=== PATIENT | male | born 1950 | race Hispanic/Latino ===

== ENCOUNTER 2017-06-23 18:56 | Emergency (ER) | payer MEDICARE ==
[2017-06-23 19:45] LABS: Eosinophils % (Auto) 4.5 % (0.0-4.3); Hematocrit 26.7 % (35.5-45.6); Hemoglobin 8.7 gm/dl (11.8-15.2); Mean Corpuscular HGB Conc 33 % (32-34); Mean Corpuscular Hemoglobin 29 pg (28-32); Mean Corpuscular Volume 88 fl (84-94); Platelet Count 400 K/mm3 (140-440); Red Blood Count 3.02 M/mm3 (3.65-5.03); Red Cell Distribution Width 17.5 % (13.2-15.2); White Blood Count 6.3 K/mm3 (4.5-11.0)
[2017-06-23 20:08] LABS: Alanine Aminotransferase 49 units/L (7-56); Albumin 3.5 g/dL (3.9-5); Albumin/Globulin Ratio 0.9 %; Alkaline Phosphatase 104 units/L (35-129); Anion Gap 17 mmol/L; BUN/Creatinine Ratio 11.42; Blood Urea Nitrogen 8 mg/dL (9-20); Calcium 8.8 mg/dL (8.4-10.2); Carbon Dioxide 25 mmol/L (22-30); Chloride 96.7 mmol/L (98-107); Glucose 117 mg/dL (75-100); Potassium 4.4 mmol/L (3.6-5.0); Sodium 134 mmol/L (137-145); Total Protein 7.2 g/dL (6.3-8.2)
[2017-06-23 20:19] LABS: Urine Drugs of Abuse Note Disclamer
[2017-06-23 20:36] LABS: Bilirubin,Urine NEG (Negative); Blood,Urine NEG (Negative); Ketones,Urine NEG (Negative); Leukocyte Esterase,Urine NEG (Negative); Mucus,Urine FEW /HPF; Nitrite,Urine NEG (Negative); Protein,Urine <15 mg/dL mg/dL (Negative); Urobilinogen,Urine < 2.0 mg/dL (<2.0)
--- NOTE | 2017-06-24 02:30 | Emergency Department Report ---
ED General Adult HPI - General Chief complaint: Medical Clearance Stated complaint: ANEMIA Time Seen by Provider: 06/24/17 01:46 Source: patient Mode of arrival: Wheelchair Limitations: No Limitations - History of Present Illness Initial comments: 67-year-old male with past medical history alcohol abuse presents to the hospital from [place] with anemia. Patient is asymptomatic. He denies headache , shortness of breath, dizziness, syncope or near-syncope, melena, hematochezia , or hematemesis. Per patient has been at [place] for about one week. No pain reported. Most recent labs not provided by [place] - Related Data Previous Rx's Medication Instructions Recorded Last Taken Type Docusate Sodium [Colace] 100 mg PO BID PRN #30 capsule 06/24/17 Unknown Rx Ferrous Sulfate [Feosol 325 MG tab] 325 mg PO BID #60 tablet 06/24/17 Unknown Rx Allergies Allergy/AdvReac Type Severity Reaction Status Date / Time No Known Allergies Allergy Verified 06/23/17 19:12 ED Review of Systems ROS: Stated complaint: ANEMIA Other details as noted in HPI Comment: All other systems reviewed and negative Other: Constitutional: No fevers chills Eyes: No eye pain visual changes ENT: No ear pain or throat pain Neck: Denies pain Respiratory: Denies cough wheezing shortness of breath Cardiovascular: Denies chest pain, palpitations, syncope GI: Denies abdominal pain, nausea, vomiting, diarrhea, constipation, melena hematochezia : Denies dysuria Musculoskeletal: Denies back pain Skin: Denies rash, lesions, erythema Neurologic: Denies headache, numbness, weakness Psychiatric: Denies suicidal ideation, hallucinations ED Past Medical Hx - Past Medical History Previous Medical History?: Yes Hx Psychiatric Treatment: Yes (ETOH DEPENDENCE) - Social History Smoking Status: Never Smoker Substance Use Type: None - Medications Home Medications: Home Medications Medication Instructions Recorded Confirmed Last Taken Type Docusate Sodium [Colace] 100 mg PO BID PRN #30 capsule 06/24/17 Unknown Rx Ferrous Sulfate [Feosol 325 MG tab] 325 mg PO BID #60 tablet 06/24/17 Unknown Rx ED Physical Exam - General Limitations: No Limitations - Other Other exam information: General: No limitations, patient is alert in no acute distress Head exam: Atraumatic, normocephalic Eyes exam: Normal appearance, pupils equal reactive to light, extraocular movements intact ENT: Moist mucous membrane, normal oropharynx Neck exam: Normal inspection, full range of motion, no meningismus nontender Respiratory exam: Clear to auscultation bilateral, no wheezes, rales, crackles Cardiovascular: Normal rate and rhythm, normal heart sounds Abdomen: Soft, nondistended, and nontender, with normal bowel sounds, no rebound, or guarding REctal: Guaiac positive, brown stool, no melena Extremity: Full range of motion normal inspection no deformity Back: Normal Inspection, full range of motion, no tenderness Neurologic: Alert, oriented x3, cranial nerves intact, no motor or sensory deficit Psychiatric: normal affect, normal mood Skin: Warm, dry, intact ED Course Vital Signs 06/23/17 06/24/17 06/24/17 19:12 00:17 01:18 Temperature 98.2 F 98.6 F Pulse Rate 88 80 78 Respiratory 20 18 17 Rate Blood Pressure 159/83 166/86 Blood Pressure 176/93 [Right] O2 Sat by Pulse 100 100 99 Oximetry 06/24/17 01:20 Temperature Pulse Rate Respiratory 17 Rate Blood Pressure Blood Pressure [Right] O2 Sat by Pulse Oximetry - Reevaluation(s) Reevaluation #1: 06/24/17 02:56 Patient remains asymptomatic - Consultations Consultation #1: 06/24/17 03:08 Case discussed with GI doctor production tester Dr. Burgos. He agrees the patient does not meet inpatient criteria or need for emergent GI evaluation and follow-up as outpatient ED Medical Decision Making - Lab Data Result diagrams: 06/23/17 19:30 06/23/17 19:30 Lab Results 06/23/17 06/23/17 06/23/17 Range/Units 19:30 19:30 19:30 WBC 6.3 (4.5-11.0) K/mm3 RBC 3.02 L (3.65-5.03) M/mm3 Hgb 8.7 L (11.8-15.2) gm/dl Hct 26.7 L (35.5-45.6) % MCV 88 (84-94) fl MCH 29 (28-32) pg MCHC 33 (32-34) % RDW 17.5 H (13.2-15.2) % Plt Count 400 (140-440) K/mm3 Lymph % (Auto) 18.9 (13.4-35.0) % [place] % (Auto) 14.3 H (0.0-7.3) % Eos % (Auto) 4.5 H (0.0-4.3) % Baso % (Auto) 1.0 (0.0-1.8) % Lymph # 1.2 (1.2-5.4) K/mm3 [place] # 0.9 H (0.0-0.8) K/mm3 Eos # 0.3 (0.0-0.4) K/mm3 Baso # 0.1 (0.0-0.1) K/mm3 Seg Neutrophils % 61.3 (40.0-70.0) % Seg Neutrophils # 3.8 (1.8-7.7) K/mm3 Sodium 134 L (137-145) mmol/L Potassium 4.4 (3.6-5.0) mmol/L Chloride 96.7 L (98-107) mmol/L Carbon Dioxide 25 (22-30) mmol/L Anion Gap 17 mmol/L BUN 8 L (9-20) mg/dL Creatinine 0.7 L (0.8-1.5) mg/dL Estimated GFR > 60 ml/min BUN/Creatinine Ratio 11.42 % Glucose 117 H (75-100) mg/dL Calcium 8.8 (8.4-10.2) mg/dL Total Bilirubin 0.30 (0.1-1.2) mg/dL AST 90 H (5-40) units/L ALT 49 (7-56) units/L Alkaline Phosphatase 104 (35-129) units/L Total Protein 7.2 (6.3-8.2) g/dL Albumin 3.5 L (3.9-5) g/dL Albumin/Globulin Ratio 0.9 % Urine Color (Yellow) Urine Turbidity (Clear) Urine pH (5.0-7.0) Ur Specific [place] (1.003-1.030) Urine Protein (Negative) mg/dL Urine Glucose (UA) (Negative) mg/dL Urine Ketones (Negative) mg/dL Urine Blood (Negative) Urine Nitrite (Negative) Urine Bilirubin (Negative) Urine Urobilinogen (<2.0) mg/dL Ur Leukocyte Esterase (Negative) Urine WBC (Auto) (0.0-6.0) /HPF Urine RBC (Auto) (0.0-6.0) /HPF U Epithel Cells (Auto) (0-13.0) /HPF Urine Mucus /HPF Urine Opiates Screen Urine Methadone Screen Ur Barbiturates Screen Ur Phencyclidine Scrn Ur Amphetamines Screen U Benzodiazepines Scrn Urine Cocaine Screen U Marijuana (THC) Screen Drugs of Abuse Note Plasma/Serum Alcohol < 0.01 (0-0.07) gm% 06/23/17 06/23/17 Range/Units 20:12 20:12 WBC (4.5-11.0) K/mm3 RBC (3.65-5.03) M/mm3 Hgb (11.8-15.2) gm/dl Hct (35.5-45.6) % MCV (84-94) fl MCH (28-32) pg MCHC (32-34) % RDW (13.2-15.2) % Plt Count (140-440) K/mm3 Lymph % (Auto) (13.4-35.0) % [place] % (Auto) (0.0-7.3) % Eos % (Auto) (0.0-4.3) % Baso % (Auto) (0.0-1.8) % Lymph # (1.2-5.4) K/mm3 [place] # (0.0-0.8) K/mm3 Eos # (0.0-0.4) K/mm3 Baso # (0.0-0.1) K/mm3 Seg Neutrophils % (40.0-70.0) % Seg Neutrophils # (1.8-7.7) K/mm3 Sodium (137-145) mmol/L Potassium (3.6-5.0) mmol/L Chloride (98-107) mmol/L Carbon Dioxide (22-30) mmol/L Anion Gap mmol/L BUN (9-20) mg/dL Creatinine (0.8-1.5) mg/dL Estimated GFR ml/min BUN/Creatinine Ratio % Glucose (75-100) mg/dL Calcium (8.4-10.2) mg/dL Total Bilirubin (0.1-1.2) mg/dL AST (5-40) units/L ALT (7-56) units/L Alkaline Phosphatase (35-129) units/L Total Protein (6.3-8.2) g/dL Albumin (3.9-5) g/dL Albumin/Globulin Ratio % Urine Color Yellow (Yellow) Urine Turbidity Clear (Clear) Urine pH 6.0 (5.0-7.0) Ur Specific [place] 1.017 (1.003-1.030) Urine Protein <15 mg/dl (Negative) mg/dL Urine Glucose (UA) Neg (Negative) mg/dL Urine Ketones Neg (Negative) mg/dL Urine Blood Neg (Negative) Urine Nitrite Neg (Negative) Urine Bilirubin Neg (Negative) Urine Urobilinogen < 2.0 (<2.0) mg/dL Ur Leukocyte Esterase Neg (Negative) Urine WBC (Auto) 1.0 (0.0-6.0) /HPF Urine RBC (Auto) 3.0 (0.0-6.0) /HPF U Epithel Cells (Auto) < 1.0 (0-13.0) /HPF Urine Mucus Few /HPF Urine Opiates Screen Presumptive negative Urine Methadone Screen Presumptive negative Ur Barbiturates Screen Presumptive negative Ur Phencyclidine Scrn Presumptive negative Ur Amphetamines Screen Presumptive negative U Benzodiazepines Scrn Presumptive negative Urine Cocaine Screen Presumptive negative U Marijuana (THC) Screen Presumptive negative Drugs of Abuse Note Disclamer Plasma/Serum Alcohol (0-0.07) gm% - Medical Decision Making Patient has iron deficiency likely the cause of anemia as well as chronic alcohol abuse. Patient has brown stool without melena or hematochezia. Guaiac test is positive however, I do not suspect active bleeding given that it is not melanotic or bright red. Patient also likes elevation in BUN suggestive of upper GI bleed. Patient is also asymptomatic with a hemoglobin greater than 8 and therefore does not qualify for inpatient admission and transfusion at this time. His iron level is low iron tablets will be recommended. Outpatient follow-up will be encouraged. [place] will be instructed to continue to monitor hemoglobin and if level drops patient may need more urgent evaluation. Previous labs not available For review - Differential Diagnosis anemia chronic disease, anemia or alcohol abuse, active bleeding, iron defi Critical Care Time: No Critical care attestation.: If time is entered above; I have spent that time in minutes in the direct care of this critically ill patient, excluding procedure time. ED Disposition Clinical Impression: Iron deficiency anemia, Chronic alcohol abuse, Guaiac positive stools Disposition: TO HOME OR SELFCARE Is pt being admited?: No Condition: Stable Instructions: Iron Deficiency Anemia (ED), Abuse of Alcohol (ED) Additional Instructions: Your iron studies are low and likely the cause of your anemia. Also abusing alcohol may cause anemia as well. You do not have any signs of active bleeding at this time. If you developed blood in your stool either bright red or black stool please return for further evaluation. Also return if you develop symptoms as indicated by her discharge instructions. Otherwise, follow-up with your primary care doctor as an outpatient for further evaluation. While at [place] I suggests continued monitoring of hemoglobin and hematocrit levels and return to ER if there is a significant reduction. Please note you have been started on iron tablets. These tablets may cause constipation. I have written for 1 tab twice a day. You may reduced to 1 tablet once a day if you are unable to tolerate the medication. Take Colace or other stool softeners as needed for constipation. Prescriptions: Docusate Sodium [Colace] 100 mg PO BID PRN #30 capsule PRN Reason: Constipation Ferrous Sulfate [Feosol 325 MG tab] 325 mg PO BID #60 tablet Referrals: PRIMARY CARE, [Primary Care Provider] - 3-5 Days RANDY BURGOS MD [Staff Physician] - 3-5 Days (GI doctor ) RADHA VILLEDA MD [Staff Physician] - 3-5 Days (Primary care doctor option) Time of Disposition: 03:31
[2017-06-24 02:44] LABS: Total Iron Binding Capacity 477.4 mcg/dL (250-450)
[2017-06-24 05:50] VITALS: BP 157/89
== END 2017-06-24 05:49 | disposition home or self-care (01) ==
LOC: ED 18:56
DX: D50.9 Iron deficiency anemia, unspecified (principal); F10.10 Alcohol abuse, uncomplicated
CPT/HCPCS: 36415; 80053; 80307; 81001; 82271; 83550; 85025; 99283; G0480; 80320

== ENCOUNTER 2019-07-06 18:05 | Inpatient (IN) | payer MEDICARE ==
[2019-07-06] MEDS ORDERED: COLACE PO PRN (19:32)
[2019-07-07] MEDS: FEOSOL PO SCH ×3 (02:18→21:15)
[2019-07-07 11:59] LABS: Chol/HDL Ratio 3.12 %
--- NOTE | 2019-07-07 12:37 | Consultation ---
History of Present Illness - Reason for Consult Consult date: 07/07/19 [facility] Requesting physician: ZAHRAA BURRIS - History of Present Illness Patient is a 69 year old male admitted to the [facility] due to severe depression, hopelessness, wish and inability to care for self and concerning for danger to self, severe anxiety/depression and unable to care for himself. It was reported that the patient was tremulous, very confused and unable to participate in meaningful conversation and we are consulted to evaluate the patient. Patient has a hx of GERD, HTN, Arthritis, Liver disease, but none complaint with lactulos. Patient although willing for exam could not provided any succinct detail. Per other documentation, He is alert but but completely disoriented. He is paranoid and disorganized. Past History Past Medical History: hypertension, hyperlipidemia, liver disease Past Surgical History: No surgical history Social history: no significant social history, full code Family history: no significant family history Medications and Allergies Allergies Allergy/AdvReac Type Severity Reaction Status Date / Time No Known Allergies Allergy Verified 06/23/17 19:12 Home Medications Medication Instructions Recorded Confirmed Last Taken Type Docusate Sodium [Colace] 100 mg PO BID PRN #30 capsule 06/24/17 07/07/19 Unknown Rx Ferrous Sulfate [Feosol 325 MG tab] 325 mg PO BID #60 tablet 06/24/17 07/07/19 Unknown Rx Amlodipine Besylate [Norvasc] 10 mg PO QAM 07/06/19 07/06/19 07/06/19 10:00 History Lactulose 30 ml PO BID 07/06/19 07/06/19 07/06/19 10:00 History 30 ml Latanoprost 0.005% 1 drop OU HS 07/06/19 07/06/19 07/05/19 22:00 History 1 gtt Metoprolol Tartrate 50 mg PO BID 07/06/19 07/06/19 07/06/19 10:00 History 50 mg Mirtazapine 15 mg PO HS 07/06/19 07/06/19 07/05/19 22:00 History 15 mg Pantoprazole 40 mg PO DAILY 07/06/19 07/06/19 07/06/19 10:00 History 40 mg Patiromer Calcium Sorbitex 8.4 gm PO DAILY 07/06/19 07/06/19 07/06/19 13:00 History Sertraline HCl 150 mg PO DAILY 07/06/19 07/06/19 07/06/19 10:00 History 150 mg Sodium Bicarbonate 650 mg PO BID 07/06/19 07/06/19 07/05/19 09:00 History 650 mg buPROPion SR [Wellbutrin SR] 100 mg PO BID 07/06/19 07/06/19 07/06/19 10:00 His tory 100 mg Active Meds: Active Medications Docusate Sodium (Colace) 100 mg PO BID PRN PRN Reason: Constipation Ferrous Sulfate (Feosol) 325 mg PO BID [facility] Last Admin: 07/07/19 09:15 Dose: Not Given Documented by: Review of Systems ROS unobtainable: due to mental status Constitutional: no fatigue, no weakness, no malaise, no lethargy Cardiovascular: no palpitations, no shortness of breath Respiratory: no cough, no shortness of breath, no dyspnea on exertion Gastrointestinal: no vomiting, no diarrhea Neurological: confusion Exam - Constitutional Vitals: Temp Pulse Resp BP Pulse Ox 98.1 F 73 18 103/57 100 07/07/19 09:57 07/07/19 09:57 07/07/19 09:57 07/07/19 09:57 07/07/19 09:57 General appearance: Present: no acute distress, well-nourished - EENT Eyes: Present: PERRL, EOM intact ENT: hearing intact, clear oral mucosa - Neck Neck: Present: supple, normal ROM - Respiratory Respiratory effort: normal Respiratory: bilateral: CTA - Cardiovascular Rhythm: regular Heart Sounds: Present: S1 & S2. Absent: systolic murmur, diastolic murmur - Extremities Extremities: no ischemia, pulses intact, pulses symmetrical, No edema, normal temperature, normal color, Full ROM Peripheral Pulses: within normal limits - Abdominal General gastrointestinal: Present: soft, non-tender, non-distended, normal bowel sounds - Integumentary Integumentary: Present: clear, warm, dry - Musculoskeletal Musculoskeletal: strength equal bilaterally - Psychiatric Psychiatric: appropriate mood/affect, no memory intact, depressed - Neurologic Neurologic: moves all extremities - Allied Health Allied health notes reviewed: nursing Results - Labs CBC & Chem 7: 07/07/19 10:32 Labs: Abnormal lab results 07/07/19 07/07/19 Range/Units 02:31 10:32 POC Glucose 109 H (70-105) HDL Cholesterol 33 L (40-59) mg/dL Assessment and Plan Patient is a 69 year old male [facility] due to severe depression, hopelessness, wish and inability to care for self and concerning for danger to self, severe anxiety/depression and unable to care for himself. It was reported that the patient was tremulous, very confused and unable to participate in meaningful conversation and we are consulted to evaluate the patient. Patient has a hx of GERD, HTN, Arthritis, Liver disease, but none complaint with lactulos. Patient although willing for exam could not provided any succinct detail. Per other documentation, He is alert but but completely disoriented. He is paranoid and disorganized. Hepatic Encephalopathy MDD Recurrent Psychosis Major Neurocongnitive disorder GERD HTN ARTHRITIS PLAN Continue plan as per Psych Team Resume home medication including Lactulose Counselling provided to the patient check ammonia leve dvt/gi prophy
[2019-07-07 14:18] LABS: BUN/Creatinine Ratio 27; Blood Urea Nitrogen 27 mg/dL (9-20); Calcium 9.2 mg/dL (8.4-10.2); Hemolysis Index 3
[2019-07-07] MEDS: LATANOPROST 0.005% OU SCH (17:19)
[2019-07-07] MEDS: ATIVAN IM PRN (18:15)
[2019-07-07] MEDS: SODIUM BICARBONATE PO SCH (21:16)
[2019-07-07] MEDS: WELLBUTRIN SR PO SCH (21:16)
[2019-07-07] MEDS: CEPHULAC PO SCH (21:16)
[2019-07-07] MEDS ORDERED: NON-FORMULARY (Sodium Bicarbonate 650 MG) PO SCH (22:00)
[2019-07-07] MEDS ORDERED: NON-FORMULARY (Latanoprost 0.005% 1 DROP) OU SCH (22:00)
[2019-07-07] MEDS ORDERED: NON-FORMULARY (Metoprolol Tartrate 50 MG) PO SCH (22:00)
[2019-07-07] MEDS ORDERED: LACTULOSE PO SCH (22:00)
--- NOTE | 2019-07-08 07:22 | History and Physical Report ---
GP History & Physical - History of Present Illness Date of admission: 07/06/19 Date of Examination: 07/07/19 Reason for Admission: Danger to self, Severe anxiety/depression, Unable to care for self Chief Complaint: Depressed History of Present Illness: The patient is a 69yo male with unknown psych history. He is [facility] the [facility] after he presented with severe depression, hopelessness, wish and inability to care for self. Patient is tremulous, very confused and unable to participate in meaningful conversation. He is alert but but completely disoriented. He is paranoid and disorganized. Legal Status: Involuntary Patient Problems: Current Active Problems MDD (major depressive disorder), recurrent, severe, with psychosis (Acute) Major neurocognitive disorder (Acute) Reaction to Hospitalization: Accepting Substance History - Substance History Drug Use: other (None documented. ) Past psychiatric history - Past Medical History Past Medical History: arthritis, GERD, hypertension, liver disease - past Psychiatric treatment and history Psych: Depression - Social History Social history: other (Unable to obtain social history ) Review of Systems ROS unobtainable: due to mental status Results - Results Labs/Vitals: Laboratory Last Values Sodium 142 mmol/L (137-145) 07/07/19 10:32 Potassium 4.4 mmol/L (3.6-5.0) 07/07/19 10:32 Chloride 106.9 mmol/L (98-107) 07/07/19 10:32 Carbon Dioxide 21 mmol/L (22-30) L 07/07/19 10:32 19 mmol/L 07/07/19 10:32 BUN 27 mg/dL (9-20) H 07/07/19 10:32 1.0 mg/dL (0.8-1.5) 07/07/19 10:32 Estimated GFR > 60 ml/min 07/07/19 10:32 27 % 07/07/19 10:32 Glucose 116 mg/dL (75-100) H 07/07/19 10:32 POC Glucose 109 (70-105) H 07/07/19 02:31 5.8 % (4-6) 07/07/19 10:32 Calcium 9.2 mg/dL (8.4-10.2) 07/07/19 10:32 73.0 umol/L (25-60) H 07/07/19 13:49 Triglycerides 88 mg/dL (2-149) 07/07/19 10:32 Cholesterol 103 mg/dL (50-199) 07/07/19 10:32 62 mg/dL (50-130) 07/07/19 10:32 33 mg/dL (40-59) L 07/07/19 10:32 3.12 % 07/07/19 10:32 Last Vital Signs Temp 98.5 F 07/07/19 19:09 Pulse 89 07/07/19 19:10 Resp 18 07/07/19 19:09 BP 105/63 07/07/19 19:09 Pulse Ox 98 07/07/19 19:10 Physical Examination - Constitutional Vitals: Vital Signs Temp Pulse Resp BP Pulse Ox 98.5 F 89 18 105/63 98 07/07/19 19:09 07/07/19 19:10 07/07/19 19:09 07/07/19 19:09 07/07/19 19:10 Temperature -Last 24 Hours Temperature 98.5 F Temperature 98.1 F General appearance: Present: no acute distress, disheveled - EENT Eyes: Present: PERRL, EOM intact ENT: hearing intact - Neck Neck: Present: supple, normal ROM - Respiratory Respiratory effort: normal Mental Status Exam - Vital signs Last Vital Signs Temp 98.5 F 07/07/19 19:09 Pulse 89 07/07/19 19:10 Resp 18 07/07/19 19:09 BP 105/63 07/07/19 19:09 Pulse Ox 98 07/07/19 19:10 - Exam Affect: flat, depressed Mood: congruent with affect Thought content: delusions, paranoia Thought Process: Disorganized Perceptions: none Speech: paucity Concentration: distractible Motor activity: lethargic Level of consciousness: confused Memory: Recent Impaired, Remote Impaired Interaction: uncooperative Mini mental status exam(if necessary): 0-17 Assessment and Plan - Psychiatric problem (1) MDD (major depressive disorder), recurrent, severe, with psychosis Current Visit: Yes Status: Acute (2) Major neurocognitive disorder Current Visit: Yes Status: Acute Physician Certification - Certification Statement Physician Certification Statement: This is an acknowledgement statement that CELENA BRADFORD is a 69 year old M who requires inpatient psychiatric admission for treatment which could reasonably be expected to improve the patient's condition for Depression Estimated period of time patient will need to remain in the hospital: 7 days Plan for post-hospital care: out-patient treatment Medications & Allergies - Medications Allergies/Adverse Reactions: Allergies No Known Allergies Allergy (Verified 06/23/17 19:12) Home Medications: Home Medications Medication Instructions Recorded Confirmed Last Taken Type Docusate Sodium [Colace] 100 mg PO BID PRN #30 capsule 06/24/17 07/07/19 Unknown Rx Ferrous Sulfate [Feosol 325 MG tab] 325 mg PO BID #60 tablet 06/24/17 07/07/19 Unknown Rx Amlodipine Besylate [Norvasc] 10 mg PO QAM 07/06/19 07/06/19 07/06/19 10:00 History Lactulose 30 ml PO BID 07/06/19 07/06/19 07/06/19 10:00 History 30 ml Latanoprost 0.005% 1 drop OU HS 07/06/19 07/06/19 07/05/19 22:00 History 1 gtt Metoprolol Tartrate 50 mg PO BID 07/06/19 07/06/19 07/06/19 10:00 History 50 mg Mirtazapine 15 mg PO HS 07/06/19 07/06/19 07/05/19 22:00 History 15 mg Pantoprazole 40 mg PO DAILY 07/06/19 07/06/19 07/06/19 10:00 History 40 mg Patiromer Calcium Sorbitex 8.4 gm PO DAILY 07/06/19 07/06/19 07/06/19 13:00 History Sertraline HCl 150 mg PO DAILY 07/06/19 07/06/19 07/06/19 10:00 History 150 mg Sodium Bicarbonate 650 mg PO BID 07/06/19 07/06/19 07/05/19 09:00 History 650 mg buPROPion SR [Wellbutrin SR] 100 mg PO BID 07/06/19 07/06/19 07/06/19 10:00 History 100 mg Active Medications: Generic Name Dose Route Start Last Admin Trade Name Freq PRN Reason Stop Dose Admin Amlodipine Besylate 10 mg 07/08/19 10:00 Norvasc PO QAM NIRAV Bupropion HCl 100 mg 07/07/19 22:00 07/07/19 21:16 Wellbutrin Sr PO 100 mg BID NIRAV Administration Docusate Sodium 100 mg 07/06/19 19:32 Colace PO BID PRN Constipation Ferrous Sulfate 325 mg 07/06/19 22:00 07/07/19 21:15 Feosol PO 325 mg BID NIRAV Administration Haloperidol Lactate 5 mg 07/07/19 18:06 Haldol IM Q6H PRN Agitation Lactulose 20 gm 07/07/19 22:00 07/07/19 21:16 Cephulac PO 20 gm BID NIRAV Administration Latanoprost 1 drops 07/07/19 18:00 07/07/19 17:19 Latanoprost 0.005% OU 1 drops QPM NIRAV Administration Lorazepam 1 mg 07/07/19 18:05 07/07/19 18:15 Ativan IM 1 mg Q6H PRN Administration Agitation Pantoprazole Sodium 40 mg 07/08/19 10:00 Protonix PO DAILY NIRAV Sodium Bicarbonate 650 mg 07/07/19 22:00 07/07/19 21:16 Sodium Bicarbonate PO 650 mg BID NIRAV Administration
[2019-07-08] MEDS: HALDOL PO SCH ×2 (09:33→21:07)
[2019-07-08] MEDS: NORVASC PO SCH (09:33)
[2019-07-08] MEDS: SODIUM BICARBONATE PO SCH ×2 (09:33→21:07)
[2019-07-08] MEDS: WELLBUTRIN SR PO SCH ×2 (09:33→21:07)
[2019-07-08] MEDS: PROTONIX PO SCH (09:34)
[2019-07-08] MEDS: FEOSOL PO SCH ×2 (09:34→21:08)
[2019-07-08] MEDS: CEPHULAC PO SCH ×2 (09:47→21:06)
[2019-07-08] MEDS ORDERED: NON-FORMULARY (Pantoprazole 40 MG) PO SCH (10:00)
[2019-07-08] MEDS: LATANOPROST 0.005% OU SCH (17:23)
[2019-07-08] MEDS: REMERON PO SCH (21:07)
[2019-07-09] MEDS: NORVASC PO SCH (11:34)
[2019-07-09] MEDS: CEPHULAC PO SCH ×2 (11:35→21:01)
[2019-07-09] MEDS: FEOSOL PO SCH ×2 (11:35→21:01)
[2019-07-09] MEDS: SODIUM BICARBONATE PO SCH ×2 (11:35→21:02)
[2019-07-09] MEDS: HALDOL PO SCH ×2 (11:35→21:02)
[2019-07-09] MEDS: PROTONIX PO SCH (11:35)
[2019-07-09] MEDS: WELLBUTRIN SR PO SCH ×2 (11:36→21:03)
[2019-07-09] MEDS: LATANOPROST 0.005% OU SCH (18:35)
--- NOTE | 2019-07-09 20:18 | Progress Note ---
Subjective Date of service: 07/08/19 Principal diagnosis: Major Neurocognitive disorder Subjective Comment: Patient is tremulous, very confused and unable to participate in meaningful conversation. He is alert but but completely disoriented. He is paranoid and disorganized. MSE: Affect: flat, depressed Mood: congruent with affect Thought content: delusions, paranoia Thought Process: Disorganized Perceptions: none Speech: paucity Concentration: distractible Motor activity: lethargic Level of consciousness: confused Memory: Recent Impaired, Remote Impaired Interaction: uncooperative Mini mental status exam(if necessary): 0-17 Objective - Criteria for Continued Treatment Criteria for Continued Treatment: Stablizing Level of Functioning, Improving Emotional/Socia - Objective Observation Participation Level: Minimal Reason(s) For Not Participating: Unable Assessment and Plan - Patient Problems (1) MDD (major depressive disorder), recurrent, severe, with psychosis Current Visit: Yes Status: Acute (2) Major neurocognitive disorder Current Visit: Yes Status: Acute Plan to address problem: Patient will be admitted for inpatient psychiatric evaluation, medication adjustment and close monitoring The patient's behavior, mood, sleep and appetite will be closely monitored. Patient will be enrolled in individual and group therapeutic sessions and encouraged to attend. Patient will be provided with a safe and structured environment. Patient's physical health needs will be addressed by the Hospitalist. Social Assessment will be completed and the Slat Grader will work with patient and family to ensure a suitable and safe disposition Medication adjustment will be made as clinically indicated
--- NOTE | 2019-07-09 20:28 | Progress Note ---
Subjective Date of service: 07/09/19 Principal diagnosis: Major Neurocognitive disorder Subjective Comment: No changes. Patient is tremulous, very confused and unable to participate in meaningful conversation. He is alert but but completely disoriented. He is paranoid and disorganized. MSE: Affect: flat, depressed Mood: congruent with affect Thought content: delusions, paranoia Thought Process: Disorganized Perceptions: none Speech: paucity Concentration: distractible Motor activity: lethargic Level of consciousness: confused Memory: Recent Impaired, Remote Impaired Interaction: uncooperative Mini mental status exam(if necessary): 0-17 Objective - Criteria for Continued Treatment Criteria for Continued Treatment: Improving Level of Functioning, Stablizing Level of Functioning, Improving Emotional/Socia - Objective Observation Participation Level: Minimal Reason(s) For Not Participating: Unable Assessment and Plan - Patient Problems (1) MDD (major depressive disorder), recurrent, severe, with psychosis Current Visit: Yes Status: Acute (2) Major neurocognitive disorder Current Visit: Yes Status: Acute Plan to address problem: Patient will be admitted for inpatient psychiatric evaluation, medication adjustment and close monitoring The patient's behavior, mood, sleep and appetite will be closely monitored. Patient will be enrolled in individual and group therapeutic sessions and encouraged to attend. Patient will be provided with a safe and structured environment. Patient's physical health needs will be addressed by the Hospitalist. Social Assessment will be completed and the Edge Stripper will work with patient and family to ensure a suitable and safe disposition Medication adjustment will be made as clinically indicated
[2019-07-09] MEDS: REMERON PO SCH (21:02)
--- NOTE | 2019-07-10 09:16 | Progress Note ---
Subjective Date of service: 07/10/19 Principal diagnosis: Major Neurocognitive disorder Subjective Comment: Patient sitting in the ishmael-chair tremulous, very confused and unable to participate in meaningful conversation. He is alert but completely disoriented. He is paranoid and disorganized. MSE: Affect: flat, depressed Mood: congruent with affect Thought content: delusions, paranoia Thought Process: Disorganized Perceptions: none Speech: paucity Concentration: distractible Motor activity: lethargic Level of consciousness: confused Memory: Recent Impaired, Remote Impaired Interaction: uncooperative Mini mental status exam(if necessary): 0-17 Objective - Criteria for Continued Treatment Criteria for Continued Treatment: Improving Level of Functioning, Improving Emotional/Socia, Decreasing Frequency of Hospitalization - Objective Observation Participation Level: Minimal Reason(s) For Not Participating: Unable Assessment and Plan - Patient Problems (1) MDD (major depressive disorder), recurrent, severe, with psychosis Current Visit: Yes Status: Acute (2) Major neurocognitive disorder Current Visit: Yes Status: Acute Plan to address problem: Patient will be admitted for inpatient psychiatric evaluation, medication adjustment and close monitoring The patient's behavior, mood, sleep and appetite will be closely monitored. Patient will be enrolled in individual and group therapeutic sessions and encouraged to attend. Patient will be provided with a safe and structured environment. Patient's physical health needs will be addressed by the Hospitalist. Social Assessment will be completed and the Clinical Allergist will work with patient and family to ensure a suitable and safe disposition Medication adjustment will be made as clinically indicated Medications & Allergies - Medications Allergies/Adverse Reactions: Allergies No Known Allergies Allergy (Verified 06/23/17 19:12) Home Medications: Home Medications Medication Instructions Recorded Confirmed Last Taken Type Docusate Sodium [Colace] 100 mg PO BID PRN #30 capsule 06/24/17 07/07/19 Unknown Rx Ferrous Sulfate [Feosol 325 MG tab] 325 mg PO BID #60 tablet 06/24/17 07/07/19 Unknown Rx Amlodipine Besylate [Norvasc] 10 mg PO QAM 07/06/19 07/06/19 07/06/19 10:00 History Lactulose 30 ml PO BID 07/06/19 07/06/19 07/06/19 10:00 History 30 ml Latanoprost 0.005% 1 drop OU HS 07/06/19 07/06/19 07/05/19 22:00 History 1 gtt Metoprolol Tartrate 50 mg PO BID 07/06/19 07/06/19 07/06/19 10:00 History 50 mg Mirtazapine 15 mg PO HS 07/06/19 07/06/19 07/05/19 22:00 History 15 mg Pantoprazole 40 mg PO DAILY 07/06/19 07/06/19 07/06/19 10:00 History 40 mg Patiromer Calcium Sorbitex 8.4 gm PO DAILY 07/06/19 07/06/19 07/06/19 13:00 History Sertraline HCl 150 mg PO DAILY 07/06/19 07/06/19 07/06/19 10:00 History 150 mg Sodium Bicarbonate 650 mg PO BID 07/06/19 07/06/19 07/05/19 09:00 History 650 mg buPROPion SR [Wellbutrin SR] 100 mg PO BID 07/06/19 07/06/19 07/06/19 10:00 History 100 mg Active Medications: Generic Name Dose Route Start Last Admin Trade Name Krissy PRN Reason Stop Dose Admin Amlodipine Besylate 10 mg 07/08/19 10:00 07/09/19 11:34 Norvasc PO 10 mg QAM NIRAV Administration Bupropion HCl 100 mg 07/07/19 22:00 07/09/19 21:03 Wellbutrin Sr PO 100 mg BID NIRAV Administration Docusate Sodium 100 mg 07/06/19 19:32 Colace PO BID PRN Constipation Ferrous Sulfate 325 mg 07/06/19 22:00 07/09/19 21:01 Feosol PO 325 mg BID NIRAV Administration Haloperidol 2 mg 07/08/19 10:00 07/09/19 21:02 Haldol PO 2 mg BID NIRAV Administration Haloperidol Lactate 5 mg 07/07/19 18:06 Haldol IM Q6H PRN Agitation Lactulose 20 gm 07/07/19 22:00 07/09/19 21:01 Cephulac PO 20 gm BID NIRAV Administration Latanoprost 1 drops 07/07/19 18:00 07/09/19 18:35 Latanoprost 0.005% OU 1 drops QPM NIRAV Administration Lorazepam 1 mg 07/07/19 18:05 07/07/19 18:15 Ativan IM 1 mg Q6H PRN Administration Agitation Mirtazapine 15 mg 07/08/19 22:00 07/09/19 21:02 Remeron PO 15 mg QHS NIRAV Administration Pantoprazole Sodium 40 mg 07/08/19 10:00 07/09/19 11:35 Protonix PO 40 mg DAILY NIRAV Administration Sodium Bicarbonate 650 mg 07/07/19 22:00 07/09/19 21:02 Sodium Bicarbonate PO 650 mg BID NIRAV Administration
[2019-07-10] MEDS: NORVASC PO SCH (10:45)
[2019-07-10] MEDS: FEOSOL PO SCH ×2 (10:45→22:03)
[2019-07-10] MEDS: SODIUM BICARBONATE PO SCH ×2 (10:46→22:03)
[2019-07-10] MEDS: HALDOL PO SCH ×2 (10:46→22:03)
[2019-07-10] MEDS: PROTONIX PO SCH (10:47)
[2019-07-10] MEDS: CEPHULAC PO SCH ×2 (10:47→22:03)
[2019-07-10] MEDS: WELLBUTRIN SR PO SCH ×2 (10:47→22:03)
[2019-07-10] MEDS: LATANOPROST 0.005% OU SCH (17:30)
[2019-07-10] MEDS: REMERON PO SCH (22:03)
--- NOTE | 2019-07-11 09:36 | Progress Note ---
Subjective Date of service: 07/11/19 Principal diagnosis: Major Neurocognitive disorder Subjective Comment: Patient is withdrawn, sluggish, very depressed, confused, requires total care, unable to make needs known, tremulous, very high fall risk, unable to participate in meaningful conversation. Not eating, holding medications in his mouth and refusing to swallow. He is paranoid and disorganized. MSE: Affect: flat, depressed Mood: congruent with affect Thought content: delusions, paranoia Thought Process: Disorganized Perceptions: none Speech: paucity Concentration: distractible Motor activity: lethargic Level of consciousness: confused Memory: Recent Impaired, Remote Impaired Interaction: uncooperative Mini mental status exam(if necessary): 0-17 Objective - Criteria for Continued Treatment Criteria for Continued Treatment: Improving Level of Functioning, Reducing Isolative Behaviors, Improving Treatment / Medication Compliance, Stablizing Level of Functioning, Improving Emotional/Socia - Objective Observation Participation Level: Minimal Reason(s) For Not Participating: Unable Assessment and Plan - Patient Problems (1) MDD (major depressive disorder), recurrent, severe, with psychosis Current Visit: Yes Status: Acute (2) Major neurocognitive disorder Current Visit: Yes Status: Acute Plan to address problem: Patient will be admitted for inpatient psychiatric evaluation, medication adjustment and close monitoring The patient's behavior, mood, sleep and appetite will be closely monitored. Patient will be enrolled in individual and group therapeutic sessions and encouraged to attend. Patient will be provided with a safe and structured environment. Patient's physical health needs will be addressed by the Hospitalist. Social Assessment will be completed and the Radioisotope Technologist will work with patient and family to ensure a suitable and safe disposition Medication adjustment will be made as clinically indicated Will start Citalopram 20mg for depression Discontinue Haldol and start Abilify 5mg qam for psychosis and depression Medications & Allergies - Medications Allergies/Adverse Reactions: Allergies No Known Allergies Allergy (Verified 06/23/17 19:12) Home Medications: Home Medications Medication Instructions Recorded Confirmed Last Taken Type Docusate Sodium [Colace] 100 mg PO BID PRN #30 capsule 06/24/17 07/07/19 Unknown Rx Ferrous Sulfate [Feosol 325 MG tab] 325 mg PO BID #60 tablet 06/24/17 07/07/19 Unknown Rx Amlodipine Besylate [Norvasc] 10 mg PO QAM 07/06/19 07/06/19 07/06/19 10:00 History Lactulose 30 ml PO BID 07/06/19 07/06/19 07/06/19 10:00 History 30 ml Latanoprost 0.005% 1 drop OU HS 07/06/19 07/06/19 07/05/19 22:00 History 1 gtt Metoprolol Tartrate 50 mg PO BID 07/06/19 07/06/19 07/06/19 10:00 History 50 mg Mirtazapine 15 mg PO HS 07/06/19 07/06/19 07/05/19 22:00 History 15 mg Pantoprazole 40 mg PO DAILY 07/06/19 07/06/19 07/06/19 10:00 History 40 mg Patiromer Calcium Sorbitex 8.4 gm PO DAILY 07/06/19 07/06/19 07/06/19 13:00 History Sertraline HCl 150 mg PO DAILY 07/06/19 07/06/19 07/06/19 10:00 History 150 mg Sodium Bicarbonate 650 mg PO BID 07/06/19 07/06/19 07/05/19 09:00 History 650 mg buPROPion SR [Wellbutrin SR] 100 mg PO BID 07/06/19 07/06/19 07/06/19 10:00 History 100 mg Active Medications: Generic Name Dose Route Start Last Admin Trade Name Krissy PRN Reason Stop Dose Admin Amlodipine Besylate 10 mg 07/08/19 10:00 07/10/19 10:45 Norvasc PO 10 mg QAM NIRAV Administration Bupropion HCl 100 mg 07/07/19 22:00 07/10/19 22:03 Wellbutrin Sr PO 100 mg BID NIRAV Administration Docusate Sodium 100 mg 07/06/19 19:32 Colace PO BID PRN Constipation Ferrous Sulfate 325 mg 07/06/19 22:00 07/10/19 22:03 Feosol PO 325 mg BID NIRAV Administration Haloperidol 2 mg 07/08/19 10:00 07/10/19 22:03 Haldol PO 2 mg BID NIRAV Administration Haloperidol Lactate 5 mg 07/07/19 18:06 Haldol IM Q6H PRN Agitation Lactulose 20 gm 07/07/19 22:00 07/10/19 22:03 Cephulac PO 20 gm BID NIRAV Administration Latanoprost 1 drops 07/07/19 18:00 07/10/19 17:30 Latanoprost 0.005% OU 1 drops QPM NIRAV Administration Lorazepam 1 mg 07/07/19 18:05 07/07/19 18:15 Ativan IM 1 mg Q6H PRN Administration Agitation Mirtazapine 15 mg 07/08/19 22:00 07/10/19 22:03 Remeron PO 15 mg QHS NIRAV Administration Pantoprazole Sodium 40 mg 07/08/19 10:00 07/10/19 10:47 Protonix PO 40 mg DAILY NIRAV Administration Sodium Bicarbonate 650 mg 07/07/19 22:00 07/10/19 22:03 Sodium Bicarbonate PO 650 mg BID NIRAV Administration
[2019-07-11] MEDS: PROTONIX PO SCH (10:13)
[2019-07-11] MEDS: CEPHULAC PO SCH ×2 (10:13→21:31)
[2019-07-11] MEDS: SODIUM BICARBONATE PO SCH ×2 (10:13→21:31)
[2019-07-11] MEDS: WELLBUTRIN SR PO SCH ×2 (10:13→21:31)
[2019-07-11] MEDS: FEOSOL PO SCH ×2 (10:13→21:31)
[2019-07-11] MEDS: NORVASC PO SCH (10:19)
[2019-07-11] MEDS: celeXA PO SCH (11:04)
[2019-07-11] MEDS: ABILIFY PO SCH (11:05)
[2019-07-11] MEDS: LATANOPROST 0.005% OU SCH (17:23)
[2019-07-11] MEDS: REMERON PO SCH (21:31)
[2019-07-12] MEDS: ATIVAN IM PRN ×2 (00:20→18:19)
--- NOTE | 2019-07-12 09:05 | Progress Note ---
Subjective Date of service: 07/12/19 Principal diagnosis: Major Neurocognitive disorder Subjective Comment: Patient received Ativan last night for agitation. He is withdrawn, sluggish, very depressed, confused, requires total care, unable to make needs known, tremulous, very high fall risk, unable to participate in meaningful conversation. Not eating, holding medications in his mouth and refusing to swallow. He is paranoid and disorganized. MSE: Affect: flat, depressed Mood: congruent with affect Thought content: delusions, paranoia Thought Process: Disorganized Perceptions: none Speech: paucity Concentration: distractible Motor activity: lethargic Level of consciousness: confused Memory: Recent Impaired, Remote Impaired Interaction: uncooperative Mini mental status exam(if necessary): 0-17 Objective - Criteria for Continued Treatment Criteria for Continued Treatment: Improving Level of Functioning, Reducing Isolative Behaviors, Stablizing Level of Functioning, Improving Emotional/Socia - Objective Observation Participation Level: Minimal Reason(s) For Not Participating: Unable Assessment and Plan - Patient Problems (1) MDD (major depressive disorder), recurrent, severe, with psychosis Current Visit: Yes Status: Acute (2) Major neurocognitive disorder Current Visit: Yes Status: Acute Plan to address problem: Patient will be admitted for inpatient psychiatric evaluation, medication adjustment and close monitoring The patient's behavior, mood, sleep and appetite will be closely monitored. Patient will be enrolled in individual and group therapeutic sessions and encouraged to attend. Patient will be provided with a safe and structured environment. Patient's physical health needs will be addressed by the Hospitalist. Social Assessment will be completed and the Technical Program Manager will work with patient and family to ensure a suitable and safe disposition Medication adjustment will be made as clinically indicated Will continue Citalopram 20mg for depression Continue Abilify 5mg qam for psychosis and depression Medications & Allergies - Medications Allergies/Adverse Reactions: Allergies No Known Allergies Allergy (Verified 06/23/17 19:12) Home Medications: Home Medications Medication Instructions Recorded Confirmed Last Taken Type Docusate Sodium [Colace] 100 mg PO BID PRN #30 capsule 06/24/17 07/07/19 Unknown Rx Ferrous Sulfate [Feosol 325 MG tab] 325 mg PO BID #60 tablet 06/24/17 07/07/19 Unknown Rx Amlodipine Besylate [Norvasc] 10 mg PO QAM 07/06/19 07/06/19 07/06/19 10:00 His tory Lactulose 30 ml PO BID 07/06/19 07/06/19 07/06/19 10:00 History 30 ml Latanoprost 0.005% 1 drop OU HS 07/06/19 07/06/19 07/05/19 22:00 History 1 gtt Metoprolol Tartrate 50 mg PO BID 07/06/19 07/06/19 07/06/19 10:00 History 50 mg Mirtazapine 15 mg PO HS 07/06/19 07/06/19 07/05/19 22:00 History 15 mg Pantoprazole 40 mg PO DAILY 07/06/19 07/06/19 07/06/19 10:00 History 40 mg Patiromer Calcium Sorbitex 8.4 gm PO DAILY 07/06/19 07/06/19 07/06/19 13:00 History Sertraline HCl 150 mg PO DAILY 07/06/19 07/06/19 07/06/19 10:00 History 150 mg Sodium Bicarbonate 650 mg PO BID 07/06/19 07/06/19 07/05/19 09:00 History 650 mg buPROPion SR [Wellbutrin SR] 100 mg PO BID 07/06/19 07/06/19 07/06/19 10:00 History 100 mg Active Medications: Generic Name Dose Route Start Last Admin Trade Name Freq PRN Reason Stop Dose Admin Amlodipine Besylate 10 mg 07/08/19 10:00 07/11/19 10:19 Norvasc PO 10 mg QAM NIRAV Administration Aripiprazole 5 mg 07/11/19 10:00 07/11/19 11:05 Abilify PO 5 mg QDAY NIRAV Administration Bupropion HCl 100 mg 07/07/19 22:00 07/11/19 21:31 Wellbutrin Sr PO 100 mg BID NIRAV Administration Citalopram Hydrobromide 20 mg 07/11/19 10:30 07/11/19 11:04 Celexa PO 20 mg QDAY NIRAV Administration Docusate Sodium 100 mg 07/06/19 19:32 Colace PO BID PRN Constipation Ferrous Sulfate 325 mg 07/06/19 22:00 07/11/19 21:31 Feosol PO 325 mg BID NIRAV Administration Haloperidol Lactate 5 mg 07/07/19 18:06 Haldol IM Q6H PRN Agitation Lactulose 20 gm 07/07/19 22:00 07/11/19 21:31 Cephulac PO 20 gm BID NIRAV Administration Latanoprost 1 drops 07/07/19 18:00 07/11/19 17:23 Latanoprost 0.005% OU 1 drops QPM NIRAV Administration Lorazepam 1 mg 07/07/19 18:05 07/12/19 00:20 Ativan IM 1 mg Q6H PRN Administration Agitation Mirtazapine 15 mg 07/08/19 22:00 07/11/19 21:31 Remeron PO 15 mg QHS NIRAV Administration Pantoprazole Sodium 40 mg 07/08/19 10:00 07/11/19 10:13 Protonix PO 40 mg DAILY NIRAV Administration Sodium Bicarbonate 650 mg 07/07/19 22:00 07/11/19 21:31 Sodium Bicarbonate PO 650 mg BID NIRAV Administration
[2019-07-12] MEDS: CEPHULAC PO SCH ×2 (10:00→21:17)
[2019-07-12] MEDS: PROTONIX PO SCH (10:18)
[2019-07-12] MEDS: FEOSOL PO SCH ×2 (10:19→21:17)
[2019-07-12] MEDS: WELLBUTRIN SR PO SCH ×2 (10:19→21:17)
[2019-07-12] MEDS: ABILIFY PO SCH (10:19)
[2019-07-12] MEDS: SODIUM BICARBONATE PO SCH ×2 (10:19→21:17)
[2019-07-12] MEDS: celeXA PO SCH (10:19)
[2019-07-12] MEDS: NORVASC PO SCH (10:20)
[2019-07-12] MEDS: LATANOPROST 0.005% OU SCH (17:00)
[2019-07-12] MEDS: REMERON PO SCH (21:17)
[2019-07-13] MEDS: HALDOL IM PRN (01:50)
[2019-07-13] MEDS: PROTONIX PO SCH (10:03)
[2019-07-13] MEDS: celeXA PO SCH (10:03)
[2019-07-13] MEDS: CEPHULAC PO SCH ×2 (10:03→21:14)
[2019-07-13] MEDS: SODIUM BICARBONATE PO SCH ×2 (10:03→21:13)
[2019-07-13] MEDS: ABILIFY PO SCH (10:03)
[2019-07-13] MEDS: NORVASC PO SCH (10:03)
[2019-07-13] MEDS: FEOSOL PO SCH ×2 (10:03→21:13)
[2019-07-13] MEDS: WELLBUTRIN SR PO SCH ×2 (10:04→21:13)
--- NOTE | 2019-07-13 10:33 | Progress Note ---
Subjective Date of service: 07/13/19 Principal diagnosis: Major Neurocognitive disorder Subjective Comment: Patient continues to require PRN Ativan for agitation. He is clearing and more alert this morning. He is depressed, confused, requires total care, unable to make needs known, tremulous, very high fall risk, unable to participate in meaningful conversation. He is paranoid and disorganized. MSE: Affect: flat, depressed Mood: congruent with affect Thought content: delusions, paranoia Thought Process: Disorganized Perceptions: none Speech: paucity Concentration: distractible Motor activity: lethargic Level of consciousness: confused Memory: Recent Impaired, Remote Impaired Interaction: uncooperative Mini mental status exam(if necessary): 0-17 Objective - Criteria for Continued Treatment Criteria for Continued Treatment: Improving Level of Functioning, Improving Treatment / Medication Compliance, Stablizing Level of Functioning, Improving Emotional/Socia - Objective Observation Participation Level: Minimal Reason(s) For Not Participating: Unable Assessment and Plan - Patient Problems (1) MDD (major depressive disorder), recurrent, severe, with psychosis Current Visit: Yes Status: Acute (2) Major neurocognitive disorder Current Visit: Yes Status: Acute Plan to address problem: Patient will be admitted for inpatient psychiatric evaluation, medication adjustment and close monitoring The patient's behavior, mood, sleep and appetite will be closely monitored. Patient will be enrolled in individual and group therapeutic sessions and encouraged to attend. Patient will be provided with a safe and structured environment. Patient's physical health needs will be addressed by the Hospitalist. Social Assessment will be completed and the Machinist/Machine Builder will work with patient and family to ensure a suitable and safe disposition Medication adjustment will be made as clinically indicated Will continue Citalopram 20mg for depression Continue Abilify 5mg qam for psychosis and depression Medications & Allergies - Medications Allergies/Adverse Reactions: Allergies No Known Allergies Allergy (Verified 06/23/17 19:12) Home Medications: Home Medications Medication Instructions Recorded Confirmed Last Taken Type Docusate Sodium [Colace] 100 mg PO BID PRN #30 capsule 06/24/17 07/07/19 Unknown Rx Ferrous Sulfate [Feosol 325 MG tab] 325 mg PO BID #60 tablet 06/24/17 07/07/19 Unknown Rx Amlodipine Besylate [Norvasc] 10 mg PO QAM 07/06/19 07/06/19 07/06/19 10:00 History Lactulose 30 ml PO BID 07/06/19 07/06/19 07/06/19 10:00 History 30 ml Latanoprost 0.005% 1 drop OU HS 07/06/19 07/06/19 07/05/19 22:00 History 1 gtt Metoprolol Tartrate 50 mg PO BID 07/06/19 07/06/19 07/06/19 10:00 History 50 mg Mirtazapine 15 mg PO HS 07/06/19 07/06/19 07/05/19 22:00 History 15 mg Pantoprazole 40 mg PO DAILY 07/06/19 07/06/19 07/06/19 10:00 History 40 mg Patiromer Calcium Sorbitex 8.4 gm PO DAILY 07/06/19 07/06/19 07/06/19 13:00 History Sertraline HCl 150 mg PO DAILY 07/06/19 07/06/19 07/06/19 10:00 History 150 mg Sodium Bicarbonate 650 mg PO BID 07/06/19 07/06/19 07/05/19 09:00 History 650 mg buPROPion SR [Wellbutrin SR] 100 mg PO BID 07/06/19 07/06/19 07/06/19 10:00 History 100 mg Active Medications: Generic Name Dose Route Start Last Admin Trade Name Freq PRN Reason Stop Dose Admin Amlodipine Besylate 10 mg 07/08/19 10:00 07/13/19 10:03 Norvasc PO 10 mg QAM NIRAV Administration Aripiprazole 5 mg 07/11/19 10:00 07/13/19 10:03 Abilify PO 5 mg QDAY NIRAV Administration Bupropion HCl 100 mg 07/07/19 22:00 07/13/19 10:04 Wellbutrin Sr PO 100 mg BID NIRAV Administration Citalopram Hydrobromide 20 mg 07/11/19 10:30 07/13/19 10:03 Celexa PO 20 mg QDAY NIRAV Administration Docusate Sodium 100 mg 07/06/19 19:32 Colace PO BID PRN Constipation Ferrous Sulfate 325 mg 07/06/19 22:00 07/13/19 10:03 Feosol PO 325 mg BID NIRAV Administration Haloperidol Lactate 5 mg 07/07/19 18:06 07/13/19 01:50 Haldol IM 5 mg Q6H PRN Administration Agitation Lactulose 20 gm 07/07/19 22:00 07/13/19 10:03 Cephulac PO 20 gm BID NIRAV Administration Latanoprost 1 drops 07/07/19 18:00 07/12/19 17:00 Latanoprost 0.005% OU 1 drops QPM NIRAV Administration Lorazepam 1 mg 07/07/19 18:05 07/12/19 18:19 Ativan IM 1 mg Q6H PRN Administration Agitation Mirtazapine 15 mg 07/08/19 22:00 07/12/19 21:17 Remeron PO 15 mg QHS NIRAV Administration Pantoprazole Sodium 40 mg 07/08/19 10:00 07/13/19 10:03 Protonix PO 40 mg DAILY NIRAV Administration Sodium Bicarbonate 650 mg 07/07/19 22:00 07/13/19 10:03 Sodium Bicarbonate PO 650 mg BID NIRAV Administration
[2019-07-13] MEDS: LATANOPROST 0.005% OU SCH (17:38)
[2019-07-13] MEDS: REMERON PO SCH (21:14)
[2019-07-14] MEDS: ABILIFY PO SCH (10:32)
[2019-07-14] MEDS: WELLBUTRIN SR PO SCH ×2 (10:33→21:04)
[2019-07-14] MEDS: SODIUM BICARBONATE PO SCH ×2 (10:33→21:04)
[2019-07-14] MEDS: celeXA PO SCH (10:33)
[2019-07-14] MEDS: PROTONIX PO SCH (10:34)
[2019-07-14] MEDS: FEOSOL PO SCH ×2 (10:34→21:04)
[2019-07-14] MEDS: NORVASC PO SCH (10:34)
[2019-07-14] MEDS: CEPHULAC PO SCH ×2 (10:34→21:04)
--- NOTE | 2019-07-14 16:47 | Progress Note ---
Subjective Date of service: 07/14/19 Principal diagnosis: Major Neurocognitive disorder Subjective Comment: Patient is more alert this morning. He fed himself. He is more responsive. States his mood is ok. He is still confused, requires total care, unable to make needs known, tremulous, very high fall risk, unable to participate in meaningful conversation. He is paranoid and disorganized. MSE: Affect: flat, depressed Mood: congruent with affect Thought content: delusions, paranoia Thought Process: Disorganized Perceptions: none Speech: paucity Concentration: distractible Motor activity: lethargic Level of consciousness: confused Memory: Recent Impaired, Remote Impaired Interaction: uncooperative Mini mental status exam(if necessary): 0-17 Objective - Criteria for Continued Treatment Criteria for Continued Treatment: Improving Level of Functioning, Stablizing Level of Functioning - Objective Observation Participation Level: Minimal Reason(s) For Not Participating: Unable Assessment and Plan - Patient Problems (1) MDD (major depressive disorder), recurrent, severe, with psychosis Current Visit: Yes Status: Acute (2) Major neurocognitive disorder Current Visit: Yes Status: Acute Plan to address problem: Patient will be admitted for inpatient psychiatric evaluation, medication adjustment and close monitoring The patient's behavior, mood, sleep and appetite will be closely monitored. Patient will be enrolled in individual and group therapeutic sessions and encouraged to attend. Patient will be provided with a safe and structured environment. Patient's physical health needs will be addressed by the Hospitalist. Social Assessment will be completed and the Wharf Tender Head will work with patient and family to ensure a suitable and safe disposition Medication adjustment will be made as clinically indicated Will continue Citalopram 20mg for depression Continue Abilify 5mg qam for psychosis and depression
[2019-07-14] MEDS: LATANOPROST 0.005% OU SCH (18:48)
[2019-07-14] MEDS: REMERON PO SCH (21:04)
[2019-07-15] MEDS: FEOSOL PO SCH ×2 (11:48→21:19)
[2019-07-15] MEDS: ABILIFY PO SCH (11:48)
[2019-07-15] MEDS: SODIUM BICARBONATE PO SCH ×2 (11:48→21:20)
[2019-07-15] MEDS: PROTONIX PO SCH (11:48)
[2019-07-15] MEDS: NORVASC PO SCH (11:49)
[2019-07-15] MEDS: celeXA PO SCH (11:49)
[2019-07-15] MEDS: CEPHULAC PO SCH ×2 (11:49→21:19)
[2019-07-15] MEDS: WELLBUTRIN SR PO SCH ×2 (11:56→21:20)
[2019-07-15] MEDS: LATANOPROST 0.005% OU SCH (17:59)
[2019-07-15] MEDS: REMERON PO SCH (21:20)
[2019-07-15] MEDS: ATIVAN IM PRN (22:11)
[2019-07-15] MEDS: HALDOL IM PRN (22:46)
--- NOTE | 2019-07-16 00:55 | Progress Note ---
Subjective Date of service: 07/15/19 Principal diagnosis: Major Neurocognitive disorder Subjective Comment: Patient is slowly improving. He is more alert this morning. He fed himself. He is more responsive. States his mood is ok. He is still confused, requires total care, unable to make needs known, tremulous, very high fall risk, unable to participate in meaningful conversation. MSE: Affect: flat, depressed Mood: congruent with affect Thought content: delusions, paranoia Thought Process: Disorganized Perceptions: none Speech: paucity Concentration: distractible Motor activity: lethargic Level of consciousness: confused Memory: Recent Impaired, Remote Impaired Interaction: uncooperative Mini mental status exam(if necessary): 0-17 Objective - Criteria for Continued Treatment Criteria for Continued Treatment: Improving Level of Functioning, Reducing Isolative Behaviors, Stablizing Level of Functioning, Improving Emotional/Socia - Objective Observation Participation Level: Minimal Reason(s) For Not Participating: Unable Assessment and Plan - Patient Problems (1) MDD (major depressive disorder), recurrent, severe, with psychosis Current Visit: Yes Status: Acute (2) Major neurocognitive disorder Current Visit: Yes Status: Acute Plan to address problem: Patient will be admitted for inpatient psychiatric evaluation, medication adjustment and close monitoring The patient's behavior, mood, sleep and appetite will be closely monitored. Patient will be enrolled in individual and group therapeutic sessions and encouraged to attend. Patient will be provided with a safe and structured environment. Patient's physical health needs will be addressed by the Hospitalist. Social Assessment will be completed and the Sales Associate Fishing will work with patient and family to ensure a suitable and safe disposition Medication adjustment will be made as clinically indicated Will continue Citalopram 20mg for depression Continue Abilify 5mg qam for psychosis and depression Medications & Allergies - Medications Allergies/Adverse Reactions: Allergies No Known Allergies Allergy (Verified 06/23/17 19:12) Home Medications: Home Medications Medication Instructions Recorded Confirmed Last Taken Type Docusate Sodium [Colace] 100 mg PO BID PRN #30 capsule 06/24/17 07/07/19 Unknown Rx Ferrous Sulfate [Feosol 325 MG tab] 325 mg PO BID #60 tablet 06/24/17 07/07/19 Unknown Rx Amlodipine Besylate [Norvasc] 10 mg PO QAM 07/06/19 07/06/19 07/06/19 10:00 History Lactulose 30 ml PO BID 07/06/19 07/06/19 07/06/19 10:00 History 30 ml Latanoprost 0.005% 1 drop OU HS 07/06/19 07/06/19 07/05/19 22:00 History 1 gtt Metoprolol Tartrate 50 mg PO BID 07/06/19 07/06/19 07/06/19 10:00 History 50 mg Mirtazapine 15 mg PO HS 07/06/19 07/06/19 07/05/19 22:00 History 15 mg Pantoprazole 40 mg PO DAILY 07/06/19 07/06/19 07/06/19 10:00 History 40 mg Patiromer Calcium Sorbitex 8.4 gm PO DAILY 07/06/19 07/06/19 07/06/19 13:00 History Sertraline HCl 150 mg PO DAILY 07/06/19 07/06/19 07/06/19 10:00 History 150 mg Sodium Bicarbonate 650 mg PO BID 07/06/19 07/06/19 07/05/19 09:00 History 650 mg buPROPion SR [Wellbutrin SR] 100 mg PO BID 07/06/19 07/06/19 07/06/19 10:00 History 100 mg Active Medications: Generic Name Dose Route Start Last Admin Trade Name Freq PRN Reason Stop Dose Admin Amlodipine Besylate 10 mg 07/08/19 10:00 07/15/19 11:49 Norvasc PO 10 mg QAM NIRAV Administration Aripiprazole 5 mg 07/11/19 10:00 07/15/19 11:48 Abilify PO 5 mg QDAY NIRAV Administration Bupropion HCl 100 mg 07/07/19 22:00 07/15/19 21:20 Wellbutrin Sr PO 100 mg BID NIRAV Administration Citalopram Hydrobromide 20 mg 07/11/19 10:30 07/15/19 11:49 Celexa PO 20 mg QDAY NIRAV Administration Docusate Sodium 100 mg 07/06/19 19:32 Colace PO BID PRN Constipation Ferrous Sulfate 325 mg 07/06/19 22:00 07/15/19 21:19 Feosol PO 325 mg BID NIRAV Administration Haloperidol Lactate 5 mg 07/07/19 18:06 07/15/19 22:46 Haldol IM 5 mg Q6H PRN Administration Agitation Lactulose 20 gm 07/07/19 22:00 07/15/19 21:19 Cephulac PO 20 gm BID NIRAV Administration Latanoprost 1 drops 07/07/19 18:00 07/15/19 17:59 Latanoprost 0.005% OU 1 drops QPM NIRAV Administration Lorazepam 1 mg 07/07/19 18:05 07/15/19 22:11 Ativan IM 1 mg Q6H PRN Administration Agitation Mirtazapine 15 mg 07/08/19 22:00 07/15/19 21:20 Remeron PO 15 mg QHS NIRAV Administration Pantoprazole Sodium 40 mg 07/08/19 10:00 07/15/19 11:48 Protonix PO 40 mg DAILY NIRAV Administration Sodium Bicarbonate 650 mg 07/07/19 22:00 07/15/19 21:20 Sodium Bicarbonate PO 650 mg BID NIRAV Administration
--- NOTE | 2019-07-16 09:14 | Progress Note ---
Subjective Date of service: 07/16/19 Principal diagnosis: Major Neurocognitive disorder Subjective Comment: Patient received Haldol and Lorazepam at around 10pm last night for agitation. He was calm throughout the day yesterday. He is still confused, requires total care, unable to make needs known, tremulous, very high fall risk, unable to participate in meaningful conversation. MSE: Affect: flat, depressed Mood: congruent with affect Thought content: No SI/HI Thought Process: Disorganized Perceptions: none Speech: paucity Concentration: distractible Motor activity: lethargic Level of consciousness: confused Memory: Recent Impaired, Remote Impaired Interaction: cooperative Mini mental status exam(if necessary): 0-17 Objective - Criteria for Continued Treatment Criteria for Continued Treatment: Improving Level of Functioning, Stablizing Level of Functioning, Improving Emotional/Socia, Decreasing Frequency of Hospit alization - Objective Observation Participation Level: Moderate Assessment and Plan - Patient Problems (1) MDD (major depressive disorder), recurrent, severe, with psychosis Current Visit: Yes Status: Acute (2) Major neurocognitive disorder Current Visit: Yes Status: Acute Plan to address problem: Patient will be admitted for inpatient psychiatric evaluation, medication adjustment and close monitoring The patient's behavior, mood, sleep and appetite will be closely monitored. Patient will be enrolled in individual and group therapeutic sessions and encouraged to attend. Patient will be provided with a safe and structured environment. Patient's physical health needs will be addressed by the Hospitalist. Social Assessment will be completed and the Office Professionals will work with patient and family to ensure a suitable and safe disposition Medication adjustment will be made as clinically indicated Will continue Citalopram 20mg for depression Will increase Abilify to 10mg qam for psychosis and depression Medications & Allergies - Medications Allergies/Adverse Reactions: Allergies No Known Allergies Allergy (Verified 06/23/17 19:12) Home Medications: Home Medications Medication Instructions Recorded Confirmed Last Taken Type Docusate Sodium [Colace] 100 mg PO BID PRN #30 capsule 06/24/17 07/07/19 Unknown Rx Ferrous Sulfate [Feosol 325 MG tab] 325 mg PO BID #60 tablet 06/24/17 07/07/19 Unknown Rx Amlodipine Besylate [Norvasc] 10 mg PO QAM 07/06/19 07/06/19 07/06/19 10:00 History Lactulose 30 ml PO BID 07/06/19 07/06/19 07/06/19 10:00 History 30 ml Latanoprost 0.005% 1 drop OU HS 07/06/19 07/06/19 07/05/19 22:00 History 1 gtt Metoprolol Tartrate 50 mg PO BID 07/06/19 07/06/19 07/06/19 10:00 History 50 mg Mirtazapine 15 mg PO HS 07/06/19 07/06/19 07/05/19 22:00 History 15 mg Pantoprazole 40 mg PO DAILY 07/06/19 07/06/19 07/06/19 10:00 History 40 mg Patiromer Calcium Sorbitex 8.4 gm PO DAILY 07/06/19 07/06/19 07/06/19 13:00 History Sertraline HCl 150 mg PO DAILY 07/06/19 07/06/19 07/06/19 10:00 History 150 mg Sodium Bicarbonate 650 mg PO BID 07/06/19 07/06/19 07/05/19 09:00 History 650 mg buPROPion SR [Wellbutrin SR] 100 mg PO BID 07/06/19 07/06/19 07/06/19 10:00 History 100 mg Active Medications: Generic Name Dose Route Start Last Admin Trade Name Freq PRN Reason Stop Dose Admin Amlodipine Besylate 10 mg 07/08/19 10:00 07/15/19 11:49 Norvasc PO 10 mg QAM NIRAV Administration Aripiprazole 5 mg 07/11/19 10:00 07/15/19 11:48 Abilify PO 5 mg QDAY NIRAV Administration Bupropion HCl 100 mg 07/07/19 22:00 07/15/19 21:20 Wellbutrin Sr PO 100 mg BID NIRAV Administration Citalopram Hydrobromide 20 mg 07/11/19 10:30 07/15/19 11:49 Celexa PO 20 mg QDAY NIRAV Administration Docusate Sodium 100 mg 07/06/19 19:32 Colace PO BID PRN Constipation Ferrous Sulfate 325 mg 07/06/19 22:00 07/15/19 21:19 Feosol PO 325 mg BID NIRAV Administration Haloperidol Lactate 5 mg 07/07/19 18:06 07/15/19 22:46 Haldol IM 5 mg Q6H PRN Administration Agitation Lactulose 20 gm 07/07/19 22:00 07/15/19 21:19 Cephulac PO 20 gm BID NIRAV Administration Latanoprost 1 drops 07/07/19 18:00 07/15/19 17:59 Latanoprost 0.005% OU 1 drops QPM NIRAV Administration Lorazepam 1 mg 07/07/19 18:05 07/15/19 22:11 Ativan IM 1 mg Q6H PRN Administration Agitation Mirtazapine 15 mg 07/08/19 22:00 07/15/19 21:20 Remeron PO 15 mg QHS NIRAV Administration Pantoprazole Sodium 40 mg 07/08/19 10:00 07/15/19 11:48 Protonix PO 40 mg DAILY NIRAV Administration Sodium Bicarbonate 650 mg 07/07/19 22:00 07/15/19 21:20 Sodium Bicarbonate PO 650 mg BID NIRAV Administration
[2019-07-16] MEDS: NORVASC PO SCH (10:25)
[2019-07-16] MEDS: ABILIFY PO SCH (10:25)
[2019-07-16] MEDS: PROTONIX PO SCH (10:25)
[2019-07-16] MEDS: CEPHULAC PO SCH ×2 (10:25→21:01)
[2019-07-16] MEDS: celeXA PO SCH (10:25)
[2019-07-16] MEDS: SODIUM BICARBONATE PO SCH ×2 (10:26→21:01)
[2019-07-16] MEDS: WELLBUTRIN SR PO SCH ×2 (10:26→21:01)
[2019-07-16] MEDS: FEOSOL PO SCH ×2 (10:26→21:01)
[2019-07-16] MEDS: LATANOPROST 0.005% OU SCH (17:15)
[2019-07-16] MEDS: REMERON PO SCH (21:01)
--- NOTE | 2019-07-17 08:44 | Progress Note ---
Subjective Date of service: 07/17/19 Principal diagnosis: Major Neurocognitive disorder Subjective Comment: Patient is improving. He is more alert. Feeding himself this morning. Complains of bilateral hand tremors which make it difficult for him to hold things. He is less confused. He is oriented to person and place. He is able to make his needs known. MSE: Mood: OK Affect: congruent with affect Thought content: No SI/HI Thought Process: Goal directed Perceptions: none Speech: paucity Concentration: Adequate Motor activity: lethargic Level of consciousness: Alert; oriented x 2 Memory: Recent Impaired, Remote Impaired Interaction: cooperative Objective - Criteria for Continued Treatment Criteria for Continued Treatment: Improving Level of Functioning, Reducing Isolative Behaviors, Stablizing Level of Functioning, Improving Emotional/Socia - Objective Observation Participation Level: Moderate Assessment and Plan - Patient Problems (1) MDD (major depressive disorder), recurrent, severe, with psychosis Current Visit: Yes Status: Acute (2) Major neurocognitive disorder Current Visit: Yes Status: Acute Plan to address problem: Patient will be admitted for inpatient psychiatric evaluation, medication adjustment and close monitoring The patient's behavior, mood, sleep and appetite will be closely monitored. Patient will be enrolled in individual and group therapeutic sessions and encouraged to attend. Patient will be provided with a safe and structured environment. Patient's physical health needs will be addressed by the Hospitalist. Social Assessment will be completed and the Tie Knitter Helper will work with patient and family to ensure a suitable and safe disposition Medication adjustment will be made as clinically indicated Will continue Citalopram 20mg for depression Will continue Abilify 10mg qam for psychosis and depression Plan to discharge in am tomorrow if he continues to improve Recommend Out-patient Neurology Consult re - Hand Tremors Medications & Allergies - Medications Allergies/Adverse Reactions: Allergies No Known Allergies Allergy (Verified 06/23/17 19:12) Home Medications: Home Medications Medication Instructions Recorded Confirmed Last Taken Type Docusate Sodium [Colace] 100 mg PO BID PRN #30 capsule 06/24/17 07/07/19 Unknown Rx Ferrous Sulfate [Feosol 325 MG tab] 325 mg PO BID #60 tablet 06/24/17 07/07/19 Unknown Rx Amlodipine Besylate [Norvasc] 10 mg PO QAM 07/06/19 07/06/19 07/06/19 10:00 History Lactulose 30 ml PO BID 07/06/19 07/06/19 07/06/19 10:00 History 30 ml Latanoprost 0.005% 1 drop OU HS 07/06/19 07/06/19 07/05/19 22:00 History 1 gtt Metoprolol Tartrate 50 mg PO BID 07/06/19 07/06/19 07/06/19 10:00 History 50 mg Mirtazapine 15 mg PO HS 07/06/19 07/06/19 07/05/19 22:00 History 15 mg Pantoprazole 40 mg PO DAILY 07/06/19 07/06/19 07/06/19 10:00 History 40 mg Patiromer Calcium Sorbitex 8.4 gm PO DAILY 07/06/19 07/06/19 07/06/19 13:00 History Sertraline HCl 150 mg PO DAILY 07/06/19 07/06/19 07/06/19 10:00 History 150 mg Sodium Bicarbonate 650 mg PO BID 07/06/19 07/06/19 07/05/19 09:00 History 650 mg buPROPion SR [Wellbutrin SR] 100 mg PO BID 07/06/19 07/06/19 07/06/19 10:00 History 100 mg Active Medications: Generic Name Dose Route Start Last Admin Trade Name Freq PRN Reason Stop Dose Admin Amlodipine Besylate 10 mg 07/08/19 10:00 07/16/19 10:25 Norvasc PO 10 mg QAM NIRAV Administration Aripiprazole 10 mg 07/16/19 10:00 07/16/19 10:25 Abilify PO 10 mg QDAY NIRAV Administration Bupropion HCl 100 mg 07/07/19 22:00 07/16/19 21:01 Wellbutrin Sr PO 100 mg BID NIRAV Administration Citalopram Hydrobromide 20 mg 07/11/19 10:30 07/16/19 10:25 Celexa PO 20 mg QDAY NIRAV Administration Docusate Sodium 100 mg 07/06/19 19:32 Colace PO BID PRN Constipation Ferrous Sulfate 325 mg 07/06/19 22:00 07/16/19 21:01 Feosol PO 325 mg BID NIRAV Administration Haloperidol Lactate 5 mg 07/07/19 18:06 07/15/19 22:46 Haldol IM 5 mg Q6H PRN Administration Agitation Lactulose 20 gm 07/07/19 22:00 07/16/19 21:01 Cephulac PO 20 gm BID NIRAV Administration Latanoprost 1 drops 07/07/19 18:00 07/16/19 17:15 Latanoprost 0.005% OU 1 drops QPM NIRAV Administration Lorazepam 1 mg 07/07/19 18:05 07/15/19 22:11 Ativan IM 1 mg Q6H PRN Administration Agitation Mirtazapine 15 mg 07/08/19 22:00 07/16/19 21:01 Remeron PO 15 mg QHS NIRAV Administration Pantoprazole Sodium 40 mg 07/08/19 10:00 07/16/19 10:25 Protonix PO 40 mg DAILY NIRAV Administration Sodium Bicarbonate 650 mg 07/07/19 22:00 07/16/19 21:01 Sodium Bicarbonate PO 650 mg BID NIRAV Administration
[2019-07-17] MEDS: ABILIFY PO SCH (12:10)
[2019-07-17] MEDS: FEOSOL PO SCH ×2 (12:11→21:24)
[2019-07-17] MEDS: SODIUM BICARBONATE PO SCH ×2 (12:12→21:24)
[2019-07-17] MEDS: CEPHULAC PO SCH ×2 (12:12→21:25)
[2019-07-17] MEDS: WELLBUTRIN SR PO SCH ×2 (12:12→21:24)
[2019-07-17] MEDS: NORVASC PO SCH (12:14)
[2019-07-17] MEDS: celeXA PO SCH (12:15)
[2019-07-17] MEDS: PROTONIX PO SCH (12:23)
[2019-07-17] MEDS: LATANOPROST 0.005% OU SCH (18:56)
[2019-07-17] MEDS: REMERON PO SCH (21:23)
[2019-07-18] MEDS: HALDOL IM PRN (03:23)
[2019-07-18 09:55] VITALS: BP 121/65
[2019-07-18] MEDS: PROTONIX PO SCH (09:56)
[2019-07-18] MEDS: ABILIFY PO SCH (09:56)
[2019-07-18] MEDS: NORVASC PO SCH (09:56)
[2019-07-18] MEDS: SODIUM BICARBONATE PO SCH (09:56)
[2019-07-18] MEDS: celeXA PO SCH (09:56)
[2019-07-18] MEDS: FEOSOL PO SCH (09:56)
[2019-07-18] MEDS: WELLBUTRIN SR PO SCH (09:56)
[2019-07-18] MEDS: CEPHULAC PO SCH (09:57)
--- NOTE | 2019-07-18 10:19 | Discharge Summary ---
Providers - Providers Date of Admission: 07/06/19 23:11 Date of discharge: 07/18/19 Attending physician: ZAHRAA BURRIS MD Primary care physician: [employer] Hospitalization Reason for admission: Danger to self, Severe anxiety/depression, Unable to care for self Condition: Stable Allergies/Adverse Reactions: Allergies No Known Allergies Allergy (Verified 06/23/17 19:12) Vital Signs: Last Vital Signs Temp 98.3 F 07/18/19 09:51 Pulse 98 H 07/18/19 10:00 Resp 18 07/18/19 09:51 BP 121/65 07/18/19 10:00 Pulse Ox 100 07/18/19 09:51 Last Lab: Laboratory Last Values Sodium 142 mmol/L (137-145) 07/07/19 10:32 Potassium 4.4 mmol/L (3.6-5.0) 07/07/19 10:32 Chloride 106.9 mmol/L (98-107) 07/07/19 10:32 Carbon Dioxide 21 mmol/L (22-30) L 07/07/19 10:32 19 mmol/L 07/07/19 10:32 BUN 27 mg/dL (9-20) H 07/07/19 10:32 1.0 mg/dL (0.8-1.5) 07/07/19 10:32 Estimated GFR > 60 ml/min 07/07/19 10:32 27 % 07/07/19 10:32 Glucose 116 mg/dL (75-100) H 07/07/19 10:32 POC Glucose 109 (70-105) H 07/07/19 02:31 5.8 % (4-6) 07/07/19 10:32 Calcium 9.2 mg/dL (8.4-10.2) 07/07/19 10:32 57.0 umol/L (25-60) 07/09/19 09:24 Triglycerides 88 mg/dL (2-149) 07/07/19 10:32 Cholesterol 103 mg/dL (50-199) 07/07/19 10:32 62 mg/dL (50-130) 07/07/19 10:32 33 mg/dL (40-59) L 07/07/19 10:32 3.12 % 07/07/19 10:32 - Discharge Diagnoses (1) MDD (major depressive disorder), recurrent, severe, with psychosis Status: Acute (2) Major neurocognitive disorder Status: Acute Core Measure Documentation - Palliative Care Palliative Care/ Comfort Measures: Not Applicable Exam - Constitutional Vitals: Temp Pulse Resp BP Pulse Ox 98.3 F 98 H 18 121/65 100 07/18/19 09:51 07/18/19 10:00 07/18/19 09:51 07/18/19 10:00 07/18/19 09:51 Plan Care Plan Goals: Improved mood Plan of Treatment: Take medications as prescribed and attend outpatient follow up appointments Health Concerns: Memory decline Assessment: Depression Dementia Follow up with: PRIMARY CARE, [Primary Care Provider] - 7 Days Prescriptions: Mirtazapine [Remeron 15mg TAB] 15 mg PO QHS #30 tablet ARIPiprazole [Abilify TAB] 10 mg PO QDAY #30 tablet Citalopram [Celexa] 20 mg PO QDAY #30 tablet
== END 2019-07-18 11:20 | disposition home or self-care (01) | DRG 884 ==
LOC: 5A 23:11
PROVIDERS: ADMIT Psychiatry & Neurology Psychiatry; ATTEND Psychiatry & Neurology Psychiatry
DX: F01.51 Vascular dementia, unspecified severity, with behavioral disturbance (principal); F33.3 Major depressive disorder, recurrent, severe with psychotic symptoms; K21.9 Gastro-esophageal reflux disease without esophagitis; K72.90 Hepatic failure, unspecified without coma; F41.9 Anxiety disorder, unspecified; I10 Essential (primary) hypertension; Z79.899 Other long term (current) drug therapy
CPT/HCPCS: 36415; 80048; 80061; 82140; 82962; 83036; G0378; J1630; J2060

== ENCOUNTER 2019-11-03 21:29 | Inpatient (IN) | payer MEDICARE ==
[2019-11-04] MEDS: traZODone 50 MG TAB PO PRN ×2 (01:24→22:11)
[2019-11-04] MEDS: MIRTAZAPINE 15 MG TAB PO SCH ×2 (01:24→22:10)
[2019-11-04 08:35] LABS: Basophils % (Auto) 0.8 % (0.0-1.8); Eosinophils # (Auto) 0.1 K/mm3 (0.0-0.4); Eosinophils % (Auto) 2.3 % (0.0-4.3); Hematocrit 36.6 % (35.5-45.6); Hemoglobin 11.6 gm/dl (11.8-15.2); Lymphocytes # (Auto) 2.1 K/mm3 (1.2-5.4); Mean Corpuscular HGB Conc 32 % (32-34); Mean Corpuscular Volume 80 fl (84-94); Monocytes # (Auto) 0.7 K/mm3 (0.0-0.8); Platelet Count 259 K/mm3 (140-440); Red Cell Distribution Width 18.1 % (13.2-15.2)
[2019-11-04 08:51] LABS: Alanine Aminotransferase 13 units/L (7-56); Albumin 3.9 g/dL (3.9-5); BUN/Creatinine Ratio 23; Blood Urea Nitrogen 16 mg/dL (9-20); Calcium 9.7 mg/dL (8.4-10.2); Chol/HDL Ratio 3.42 %; HDL Cholesterol 42 mg/dL (40-59); Hemolysis Index 32; LDL Cholesterol,Direct 87 mg/dL (50-130)
[2019-11-04] MEDS ORDERED: LOSARTAN 50 MG TAB PO SCH ×2 (10:00)
[2019-11-04] MEDS ORDERED: amLODIPine 5 MG TAB PO SCH (10:00)
[2019-11-04] MEDS: CITALOPRAM 20 MG TAB PO SCH (11:12)
[2019-11-04] MEDS: ARIPiprazole 10 MG TAB PO SCH (11:12)
[2019-11-04] MEDS: hydroCHLOROthiazide 12.5 MG CAP PO SCH (11:17)
--- NOTE | 2019-11-04 14:40 | History and Physical Report ---
GP History & Physical - History of Present Illness Date of admission: 11/03/19 Date of Examination: 11/04/19 Reason for Admission: Unable to care for self Chief Complaint: acute psychosis, schizoaffective disorder History of Present Illness: istory of Present Illness: Reviewed medical record and discussed with staff the patient's plan and progress. The nursing note states the patient was admitted to the unit on 101. pt became aggressive towards family members at home and breaking windows. Pt reported to have ran out of the house, and difficult to control. He was noted for AMS. Mr Painting is a 69 year old male. The patient appear mal- nourished and emaciated. The patient is unable to answer any question. when asked his name he states, "I don't know".He was unable to answer any other question. He was just mumbling PAST PSYCHIATRIC HISTORY: Diagnoses: acute psychosis Suicide attempts or Self-harm behavior: unable to answer Prior psychiatric hospitalizations: unable to answe Substance Abuse history: unable to answer Previous psychiatric medications tried: yes per chart Outpatient treatment: yes, per chart PAST MEDICAL HISTORY: per chart htn, irregular heart beat,seizure Family Psychiatric History None reported or documented SOCIAL HISTORY Marital Status: unknown Living Arrangements: family Employment Status: retired Access to guns/weapons: unable to answer Education: unable to answer History of Abuse: unable to answer Legal History: unable to answer REVIEW OF SYSTEMS Constitutional: Negative for weight loss ENT: Negative for stridor Respiratory: Negative for cough or hemoptysis All other systems reviewed and are negative MSE unable to assess Assessment: pyschosis .depressiom, Treatment Plan Patient will be admitted for inpatient psychiatric evaluation, medication adjustment and close monitoring The patient's behavior, mood, sleep and appetite will be closely monitored. Patient will be enrolled in individual and group therapeutic sessions and encouraged to attend. Patient will be provided with a safe and structured environment. Patient's physical health needs will be addressed by the Hospitalist. Hospitalist Consulted Labs including UA, CBC, CMP, THS, Lipid profile and Hemoglobin A1C ordered Social Assessment will be completed and the Phonograph Mechanic will work with patient and family to ensure a suitable and safe disposition Medication adjustment will be made as clinically indicated Based on my evaluation, the patient is unable to demonstrate understanding, appreciation, or reasoning regarding their medical condition and need for shanti atment. At this time I do not believe that the patient has decision-making capacity. Please note that decision-making capacity can be regained, but until that time a surrogate decision maker should be appointed for the patient. The surrogate decision maker should be found using the below: 1. If the patient has a healthcare proxy, they should be contacted. 2. If there is no healthcare proxy, efforts should be made to identify an appropriate substitute decision maker (most commonly a family member or members), with the understanding that ultimately, it may be necessary to have a guardian appointed in order to facilitate legal decision making. 3. In the case of a true emergency, treatment may be provided without consent, but should be discussed with the office of general ophthalmologist and/or Ethics as soon as possible. In the 3 situations above, attempts to contact a substitute decision maker or the office of general ophthalmologist should not delay the delivery of emergent care where such delay would compromise the patient's well being. This is an acknowledgement statement that CELENA PAINTING is a 69 year old M who requires inpatient psychiatric admission for treatment which could reasonably be expected to improve the patient's condition for Estimated period of time patient will need to remain in the hospital: [ 7 days] Plan for post-hospital care: [ outpatient ] Legal Status: Involuntary Reaction to Hospitalization: Accepting Medications and Allergies Allergies Allergy/AdvReac Type Severity Reaction Status Date / Time No Known Allergies Allergy Verified 06/23/17 19:12 Home Medications Medication Instructions Recorded Confirmed Last Taken Type Docusate Sodium [Colace CAP] 100 mg PO BID PRN #30 capsule 06/24/17 11/04/19 Unknown Rx Ferrous Sulfate [Feosol 325 MG tab] 325 mg PO BID #60 tablet 06/24/17 11/04/19 Unknown Rx Amlodipine Besylate [Norvasc] 10 mg PO QAM 07/06/19 11/04/19 07/06/19 10:00 History Lactulose 30 ml PO BID 07/06/19 11/04/19 07/06/19 10:00 History 30 ml Latanoprost 0.005% 1 drop OU HS 07/06/19 11/04/19 07/05/19 22:00 History 1 gtt Metoprolol Tartrate 50 mg PO BID 07/06/19 11/04/19 07/06/19 10:00 History 50 mg Pantoprazole 40 mg PO DAILY 07/06/19 11/04/19 07/06/19 10:00 History 40 mg Patiromer Calcium Sorbitex 8.4 gm PO DAILY 07/06/19 11/04/19 07/06/19 13:00 History Sodium Bicarbonate 650 mg PO BID 07/06/19 11/04/19 07/05/19 09:00 History 650 mg buPROPion SR [Wellbutrin SR] 100 mg PO BID 07/06/19 11/04/19 07/06/19 10:00 History 100 mg ARIPiprazole [Abilify TAB] 10 mg PO QDAY #30 tablet 07/18/19 11/04/19 Unknown Rx Citalopram [Celexa] 20 mg PO QDAY #30 tablet 07/18/19 11/04/19 Unknown Rx Mirtazapine [Remeron 15mg TAB] 15 mg PO QHS #30 tablet 07/18/19 11/04/19 Unknown Rx Active Meds: Active Medications Amlodipine Besylate (Amlodipine) 5 mg PO QDAY [facility] Last Admin: 11/04/19 11:15 Dose: 5 mg Documented by: Aripiprazole (Aripiprazole) 10 mg PO QDAY [facility] Last Admin: 11/04/19 11:12 Dose: 10 mg Documented by: Citalopram Hydrobromide (Celexa) 20 mg PO QDAY [facility] Last Admin: 11/04/19 11:12 Dose: 20 mg Documented by: Hydrochlorothiazide (Hctz) 12.5 mg PO QDAY [facility] Last Admin: 11/04/19 11:17 Dose: 12.5 mg Documented by: Losartan Potassium (Cozaar) 50 mg PO QDAY [facility] Last Admin: 11/04/19 11:13 Dose: 50 mg Documented by: Mirtazapine (Remeron) 15 mg PO QHS [facility] Last Admin: 11/04/19 01:24 Dose: 15 mg Documented by: Trazodone HCl (Desyrel) 50 mg PO QHS PRN PRN Reason: Insomnia Last Admin: 11/04/19 01:24 Dose: 50 mg Documented by: Results - Results Labs/Vitals: Laboratory Last Values WBC 6.2 K/mm3 (4.5-11.0) 11/04/19 08:08 RBC 4.60 M/mm3 (3.65-5.03) 11/04/19 08:08 Hgb 11.6 gm/dl (11.8-15.2) L 11/04/19 08:08 Hct 36.6 % (35.5-45.6) 11/04/19 08:08 MCV 80 fl (84-94) L 11/04/19 08:08 MCH 25 pg (28-32) L 11/04/19 08:08 MCHC 32 % (32-34) 11/04/19 08:08 RDW 18.1 % (13.2-15.2) H 11/04/19 08:08 Plt Count 259 K/mm3 (140-440) 11/04/19 08:08 Lymph % (Auto) 34.0 % (13.4-35.0) 11/04/19 08:08 [place] % (Auto) 11.0 % (0.0-7.3) H 11/04/19 08:08 Eos % (Auto) 2.3 % (0.0-4.3) 11/04/19 08:08 Baso % (Auto) 0.8 % (0.0-1.8) 11/04/19 08:08 Lymph # 2.1 K/mm3 (1.2-5.4) 11/04/19 08:08 [place] # 0.7 K/mm3 (0.0-0.8) 11/04/19 08:08 Eos # 0.1 K/mm3 (0.0-0.4) 11/04/19 08:08 Baso # 0.0 K/mm3 (0.0-0.1) 11/04/19 08:08 Seg Neutrophils % 51.9 % (40.0-70.0) 11/04/19 08:08 Seg Neutrophils # 3.2 K/mm3 (1.8-7.7) 11/04/19 08:08 Sodium 138 mmol/L (137-145) 11/04/19 08:08 Potassium 4.2 mmol/L (3.6-5.0) 11/04/19 08:08 Chloride 98.1 mmol/L (98-107) 11/04/19 08:08 Carbon Dioxide 23 mmol/L (22-30) 11/04/19 08:08 Anion Gap 21 mmol/L 11/04/19 08:08 BUN 16 mg/dL (9-20) 11/04/19 08:08 Creatinine 0.7 mg/dL (0.8-1.5) L 11/04/19 08:08 Estimated GFR > 60 ml/min 11/04/19 08:08 BUN/Creatinine Ratio 23 % 11/04/19 08:08 Glucose 111 mg/dL (75-100) H 11/04/19 08:08 POC Glucose 104 (70-105) 11/04/19 01:52 Calcium 9.7 mg/dL (8.4-10.2) 11/04/19 08:08 Total Bilirubin 0.60 mg/dL (0.1-1.2) 11/04/19 08:08 AST 26 units/L (5-40) 11/04/19 08:08 ALT 13 units/L (7-56) 11/04/19 08:08 Alkaline Phosphatase 86 units/L (35-129) 11/04/19 08:08 Total Protein 8.1 g/dL (6.3-8.2) 11/04/19 08:08 Albumin 3.9 g/dL (3.9-5) 11/04/19 08:08 Albumin/Globulin Ratio 0.9 % 11/04/19 08:08 Triglycerides 83 mg/dL (2-149) 11/04/19 08:08 Cholesterol 144 mg/dL (50-199) 11/04/19 08:08 LDL Cholesterol Direct 87 mg/dL (50-130) 11/04/19 08:08 HDL Cholesterol 42 mg/dL (40-59) 11/04/19 08:08 Cholesterol/HDL Ratio 3.42 % 11/04/19 08:08 TSH 1.250 mlU/mL (0.270-4.200) 11/04/19 08:08 Last Vital Signs Temp Pulse 92 H 11/04/19 11:15 Resp BP 96/60 11/04/19 11:15 Pulse Ox Physical Examination - Constitutional Vitals: Vital Signs Temp Pulse Resp BP Pulse Ox 92 H 96/60 11/04/19 11:15 11/04/19 11:15 Mental Status Exam - Vital signs Last Vital Signs Temp Pulse 92 H 11/04/19 11:15 Resp BP 96/60 11/04/19 11:15 Pulse Ox
[2019-11-04] MEDS ORDERED: DOCUSATE SODIUM 100 MG CAP PO PRN (15:45)
--- NOTE | 2019-11-04 15:45 | Consultation ---
History of Present Illness - Reason for Consult Consult date: 11/04/19 Hypertension Requesting physician: ZAHRAA BURRIS - History of Present Illness Percent to 69-year-old admitted with acute psychosis. He has a medical history of hypertension and irregular heartbeat seizure disorder. The Hospitalist service has been consulted for medical management of comorbidities. Patient cannot give history because of altered mental status, confusion because of acute psychosis. He cannot even say his name and he just keeps mumbling and speech is not understandable. Past History Past Medical History: hypertension, seizures Past Surgical History: Other (Unknown) Family history: other (Unknown) Medications and Allergies Allergies Allergy/AdvReac Type Severity Reaction Status Date / Time No Known Allergies Allergy Verified 06/23/17 19:12 Home Medications Medication Instructions Recorded Confirmed Last Taken Type Docusate Sodium [Colace CAP] 100 mg PO BID PRN #30 capsule 06/24/17 11/04/19 U nknown Rx Ferrous Sulfate [Feosol 325 MG tab] 325 mg PO BID #60 tablet 06/24/17 11/04/19 Unknown Rx Amlodipine Besylate [Norvasc] 10 mg PO QAM 07/06/19 11/04/19 07/06/19 10:00 History Lactulose 30 ml PO BID 07/06/19 11/04/19 07/06/19 10:00 History 30 ml Latanoprost 0.005% 1 drop OU HS 07/06/19 11/04/19 07/05/19 22:00 History 1 gtt Metoprolol Tartrate 50 mg PO BID 07/06/19 11/04/19 07/06/19 10:00 History 50 mg Pantoprazole 40 mg PO DAILY 07/06/19 11/04/19 07/06/19 10:00 History 40 mg Patiromer Calcium Sorbitex 8.4 gm PO DAILY 07/06/19 11/04/19 07/06/19 13:00 History Sodium Bicarbonate 650 mg PO BID 07/06/19 11/04/19 07/05/19 09:00 History 650 mg buPROPion SR [Wellbutrin SR] 100 mg PO BID 07/06/19 11/04/19 07/06/19 10:00 History 100 mg ARIPiprazole [Abilify TAB] 10 mg PO QDAY #30 tablet 07/18/19 11/04/19 Unknown Rx Citalopram [Celexa] 20 mg PO QDAY #30 tablet 07/18/19 11/04/19 Unknown Rx Mirtazapine [Remeron 15mg TAB] 15 mg PO QHS #30 tablet 07/18/19 11/04/19 Unknown Rx Active Meds: Active Medications Amlodipine Besylate (Amlodipine) 5 mg PO QDAY [facility] Last Admin: 11/04/19 11:15 Dose: 5 mg Documented by: Aripiprazole (Aripiprazole) 10 mg PO QDAY [facility] Last Admin: 11/04/19 11:12 Dose: 10 mg Documented by: Citalopram Hydrobromide (Celexa) 20 mg PO QDAY [facility] Last Admin: 11/04/19 11:12 Dose: 20 mg Documented by: Hydrochlorothiazide (Hctz) 12.5 mg PO QDAY [facility] Last Admin: 11/04/19 11:17 Dose: 12.5 mg Documented by: Losartan Potassium (Cozaar) 50 mg PO QDAY [facility] Last Admin: 11/04/19 11:13 Dose: 50 mg Documented by: Mirtazapine (Remeron) 15 mg PO QHS [facility] Last Admin: 11/04/19 01:24 Dose: 15 mg Documented by: Trazodone HCl (Desyrel) 50 mg PO QHS PRN PRN Reason: Insomnia Last Admin: 11/04/19 01:24 Dose: 50 mg Documented by: Review of Systems ROS unobtainable: due to mental status Exam - Physical Exam Narrative exam: Gen: Not in acute distress, sitting up in chair HEENT: Normocephalic, atraumatic Neck: supple, no JVD Heart: S1 and S2 reg, no murmurs, rubs or gallop Lungs: Clear to auscultation, no wheezing Abd: soft, non tender, non distended, normal BS Ext: No edema, no clubbing, no cyanosis Neuro: Awake,alert, cannot understand speech-just mumbling - Constitutional Vitals: Temp Pulse Resp BP Pulse Ox 98.0 F 92 H 16 96/60 11/04/19 08:49 11/04/19 11:15 11/04/19 08:49 11/04/19 11:15 Results - Labs CBC & Chem 7: 11/04/19 08:08 11/04/19 08:08 Labs: Abnormal lab results 11/04/19 11/04/19 Range/Units 08:08 08:08 Hgb 11.6 L (11.8-15.2) gm/dl MCV 80 L (84-94) fl MCH 25 L (28-32) pg RDW 18.1 H (13.2-15.2) % [place] % (Auto) 11.0 H (0.0-7.3) % Creatinine 0.7 L (0.8-1.5) mg/dL Glucose 111 H (75-100) mg/dL Assessment and Plan Acute Psychosis. Patient admitted to GeriPsych unit, Psychiatry attending Hypertension. Continue metoprolol at a lower dose Hold amlodipine for now seems BP is borderline low History of irregular heartbeat. Details unclear Patient in metoprolol History of seizure disorder No on anti-seizure meds. Will obtain more records Thank you Dr. Burris for consulting us.
[2019-11-04] MEDS: LATANOPROST 0.005% OPHTH SOLN 2.5 ML OU SCH (22:10)
[2019-11-04] MEDS: SODIUM BICARBONATE 650 MG TAB PO SCH (22:10)
[2019-11-04] MEDS: FERROUS SULFATE 325 MG TAB PO SCH (22:10)
[2019-11-04] MEDS: METOPROLOL TARTRATE 50 MG TAB PO SCH (22:38)
--- NOTE | 2019-11-04 22:38 | Event Note ---
Date: 11/04/19 Pt had brief period of unresponsiveness and hit head while sitting on commode (likely a vagal response) and as a result has small laceration to right eyebrow. CT Head, CBC, CMP, cardiac enzymes EKG, and Neuro checks ordered. Pt is now A&O x3.
--- NOTE | 2019-11-04 23:52 | Cat Scan Report ---
CT head/brain wo con INDICATION: hit head on commode. TECHNIQUE: Routine CT head without contrast. All CT scans at this location are performed using CT dos e reduction for ALARA by means of automated exposure control. COMPARISON: None. FINDINGS: BRAIN / INTRACRANIAL CONTENTS: No acute hemorrhage, mass effect, midline shift, or hydrocephalus. No appreciable acute large territorial or lacunar infarct. No chronic infarct. Age-commensurate ventricu lar and cisternal/sulcal prominence. ORBITS: No significant abnormality of visualized orbits. SINUSES / MASTOIDS: No significant abnormality of visualized sinuses and mastoid air cells. ADDITIONAL FINDINGS: None. IMPRESSION: 1. No acute intracranial abnormality. Signer Name: Guillermo Jacques MD Signed: 11/04/2019 11:47 PM Workstation Name: [id number]
[2019-11-04 23:56] LABS: Basophils % (Auto) 0.4 % (0.0-1.8); Eosinophils % (Auto) 0.2 % (0.0-4.3); Hematocrit 32.8 % (35.5-45.6); Hemoglobin 10.4 gm/dl (11.8-15.2); Lymphocytes # (Auto) 0.7 K/mm3 (1.2-5.4); Mean Corpuscular HGB Conc 32 % (32-34); Mean Corpuscular Volume 80 fl (84-94); Monocytes # (Auto) 0.6 K/mm3 (0.0-0.8); Platelet Count 224 K/mm3 (140-440); Red Cell Distribution Width 18.2 % (13.2-15.2)
[2019-11-05 00:05] LABS: Bacteria,Urine 1+ /HPF (Negative); Bilirubin,Urine NEG (Negative); Blood,Urine NEG (Negative); Color,Urine Amber (Yellow); Mucus,Urine FEW /HPF; Protein,Urine <15 mg/dL mg/dL (Negative); RBC,Urine < 1.0 /HPF (0.0-6.0)
[2019-11-05 00:10] LABS: Creatine Kinase MB 1.2 ng/mL (0.0-4.0)
[2019-11-05 00:11] LABS: Alanine Aminotransferase 17 units/L (7-56); Albumin 3.7 g/dL (3.9-5); BUN/Creatinine Ratio 16; Blood Urea Nitrogen 22 mg/dL (9-20); Calcium 9.8 mg/dL (8.4-10.2); Hemolysis Index 8
[2019-11-05] MEDS: FERROUS SULFATE 325 MG TAB PO SCH ×2 (09:36→21:06)
[2019-11-05] MEDS: METOPROLOL TARTRATE 50 MG TAB PO SCH ×2 (09:36→21:06)
[2019-11-05] MEDS: SODIUM BICARBONATE 650 MG TAB PO SCH ×2 (09:36→21:06)
[2019-11-05] MEDS: PANTOPRAZOLE 40 MG TAB PO SCH (09:36)
[2019-11-05] MEDS: hydroCHLOROthiazide 12.5 MG CAP PO SCH (09:37)
[2019-11-05] MEDS: ARIPiprazole 10 MG TAB PO SCH (09:37)
[2019-11-05] MEDS: CITALOPRAM 20 MG TAB PO SCH (09:37)
[2019-11-05] MEDS ORDERED: PATIROMER CALCIUM SORBITEX 8.4 GM PO SCH (10:00)
--- NOTE | 2019-11-05 12:12 | Progress Note ---
Subjective Date of service: 11/05/19 Subjective Comment: Subjective Comment: Reviewed the patient's medical chart and discussed progress with nursing staff. Per chart patient slept for approximately 5hrs plus, medication compliant, poor appetite,needs assistance with ADLS and feeding, lopressor not given at bedtime for low b/p of 98/50, pt is alert and oriented to person, confused, but follows commands, able to make needs known, no aggressive behavior, no distress noted at this time, will continue to monitor for safety. During my interview this morning, the patient was in bed aaox1, when asked questions patient mumbles unable to understand. Reason for continued admission into the hospital: psychosis/ aggression REVIEW OF SYSTEMS Constitutional: positive for weight loss ENT: Negative for stridor Respiratory: Negative for cough or hemoptysis All other systems reviewed and are negative Mental Status Exam unable to assess Assessment: acute psychosis Treatment Plan Due to the psychiatric conditions and treatment listed in the Assessment and Plan - the patient requires continued hospitalization. Will continue inpatient treatment to allow for medication adjustment and monit oring. Will continue q15 min safety checks. Will encourage the use of environmental modifications and non-pharmacologic approaches for the management of behavioral and psychological symptoms. Medication adjustment made today: none Will continue current psych medications Monitor for medication side effects. The patient will continue on medications for physical illnesses, and Hospitalist will closely monitor these Continue intensive physical and occupational therapies. Monitor patient's mood, sleep, appetite, and behavior closely. Encourage patient to participate in individual and group therapeutic sessions on the guzman. Will provide a safe and therapeutic environment for patient. ELOS 3 days Medications and Allergies Allergies Allergy/AdvReac Type Severity Reaction Status Date / Time No Known Allergies Allergy Verified 06/23/17 19:12 Home Medications Medication Instructions Recorded Confirmed Last Taken Type Docusate Sodium [Colace CAP] 100 mg PO BID PRN #30 capsule 06/24/17 11/04/19 Unknown Rx Ferrous Sulfate [Feosol 325 MG tab] 325 mg PO BID #60 tablet 06/24/17 11/04/19 Unknown Rx Amlodipine Besylate [Norvasc] 10 mg PO QAM 07/06/19 11/04/19 07/06/19 10:00 History Lactulose 30 ml PO BID 07/06/19 11/04/19 07/06/19 10:00 History 30 ml Latanoprost 0.005% 1 drop OU HS 07/06/19 11/04/19 07/05/19 22:00 History 1 gtt Metoprolol Tartrate 50 mg PO BID 07/06/19 11/04/19 07/06/19 10:00 History 50 mg Pantoprazole 40 mg PO DAILY 07/06/19 11/04/19 07/06/19 10:00 History 40 mg Patiromer Calcium Sorbitex 8.4 gm PO DAILY 07/06/19 11/04/19 07/06/19 13:00 History Sodium Bicarbonate 650 mg PO BID 07/06/19 11/04/19 07/05/19 09:00 History 650 mg buPROPion SR [Wellbutrin SR] 100 mg PO BID 07/06/19 11/04/19 07/06/19 10:00 History 100 mg ARIPiprazole [Abilify TAB] 10 mg PO QDAY #30 tablet 07/18/19 11/04/19 Unknown Rx Citalopram [Celexa] 20 mg PO QDAY #30 tablet 07/18/19 11/04/19 Unknown Rx Mirtazapine [Remeron 15mg TAB] 15 mg PO QHS #30 tablet 07/18/19 11/04/19 Unknown Rx Active Meds: Active Medications Aripiprazole (Aripiprazole) 10 mg PO QDAY [facility] Last Admin: 11/05/19 09:37 Dose: 10 mg Documented by: Citalopram Hydrobromide (Celexa) 20 mg PO QDAY [facility] Last Admin: 11/05/19 09:37 Dose: 20 mg Documented by: Docusate Sodium (Colace) 100 mg PO BID PRN PRN Reason: Constipation Ferrous Sulfate (Feosol) 325 mg PO BID [facility] Last Admin: 11/05/19 09:36 Dose: 325 mg Documented by: Hydrochlorothiazide (Hctz) 12.5 mg PO QDAY [facility] Last Admin: 11/05/19 09:37 Dose: 12.5 mg Documented by: Latanoprost (Latanoprost 0.005%) 1 drops OU [facility] Last Admin: 11/04/19 22:10 Dose: 1 drops Documented by: Metoprolol Tartrate (Metoprolol) 50 mg PO BID [facility] Last Admin: 11/05/19 09:36 Dose: 50 mg Documented by: Mirtazapine (Remeron) 15 mg PO QHS [facility] Last Admin: 11/04/19 22:10 Dose: 15 mg Documented by: Miscellaneous Medication (Patiromer Calcium Sorbitex) 8.4 gm PO DAILY [facility] Pantoprazole Sodium (Protonix) 40 mg PO DAILY [facility] Last Admin: 11/05/19 09:36 Dose: 40 mg Documented by: Sodium Bicarbonate (Sodium Bicarbonate) 650 mg PO BID [facility] Last Admin: 11/05/19 09:36 Dose: 650 mg Documented by: Trazodone HCl (Desyrel) 50 mg PO QHS PRN PRN Reason: Insomnia Last Admin: 11/04/19 22:11 Dose: 50 mg Documented by: Results - Results Labs/Vitals: Laboratory Last Values WBC 6.5 K/mm3 (4.5-11.0) 11/04/19 23:30 RBC 4.10 M/mm3 (3.65-5.03) 11/04/19 23:30 Hgb 10.4 gm/dl (11.8-15.2) L 11/04/19 23:30 Hct 32.8 % (35.5-45.6) L 11/04/19 23:30 MCV 80 fl (84-94) L 11/04/19 23:30 MCH 26 pg (28-32) L 11/04/19 23:30 MCHC 32 % (32-34) 11/04/19 23:30 RDW 18.2 % (13.2-15.2) H 11/04/19 23:30 Plt Count 224 K/mm3 (140-440) 11/04/19 23:30 Lymph % (Auto) 11.0 % (13.4-35.0) L 11/04/19 23:30 [place] % (Auto) 9.0 % (0.0-7.3) H 11/04/19 23:30 Eos % (Auto) 0.2 % (0.0-4.3) 11/04/19 23:30 Baso % (Auto) 0.4 % (0.0-1.8) 11/04/19 23:30 Lymph # 0.7 K/mm3 (1.2-5.4) L 11/04/19 23:30 [place] # 0.6 K/mm3 (0.0-0.8) 11/04/19 23:30 Eos # 0.0 K/mm3 (0.0-0.4) 11/04/19 23:30 Baso # 0.0 K/mm3 (0.0-0.1) 11/04/19 23:30 Seg Neutrophils % 79.4 % (40.0-70.0) H 11/04/19 23:30 Seg Neutrophils # 5.2 K/mm3 (1.8-7.7) 11/04/19 23:30 Sodium 139 mmol/L (137-145) 11/04/19 23:30 Potassium 4.2 mmol/L (3.6-5.0) 11/04/19 23:30 Chloride 96.4 mmol/L (98-107) L 11/04/19 23:30 Carbon Dioxide 26 mmol/L (22-30) 11/04/19 23:30 Anion Gap 21 mmol/L 11/04/19 23:30 BUN 22 mg/dL (9-20) H 11/04/19 23:30 Creatinine 1.4 mg/dL (0.8-1.5) D 11/04/19 23:30 Estimated GFR 50 ml/min 11/04/19 23:30 BUN/Creatinine Ratio 16 % 11/04/19 23:30 Glucose 166 mg/dL (75-100) H 11/04/19 23:30 POC Glucose 182 (70-105) H 11/04/19 22:11 Calcium 9.8 mg/dL (8.4-10.2) 11/04/19 23:30 Total Bilirubin 0.40 mg/dL (0.1-1.2) 11/04/19 23:30 AST 36 units/L (5-40) 11/04/19 23:30 ALT 17 units/L (7-56) 11/04/19 23:30 Alkaline Phosphatase 81 units/L (35-129) 11/04/19 23:30 Total Creatine Kinase 203 units/L (55-170) H 11/05/19 11:23 CK-MB (CK-2) 1.2 ng/mL (0.0-4.0) 11/04/19 23:30 CK-MB (CK-2) Rel Index 0.9 (0-4) 11/04/19 23:30 Troponin T < 0.010 ng/mL (0.00-0.029) 11/05/19 11:23 Total Protein 7.4 g/dL (6.3-8.2) 11/04/19 23:30 Albumin 3.7 g/dL (3.9-5) L 11/04/19 23:30 Albumin/Globulin Ratio 1.0 % 11/04/19 23:30 Triglycerides 83 mg/dL (2-149) 11/04/19 08:08 Cholesterol 144 mg/dL (50-199) 11/04/19 08:08 LDL Cholesterol Direct 87 mg/dL (50-130) 11/04/19 08:08 HDL Cholesterol 42 mg/dL (40-59) 11/04/19 08:08 Cholesterol/HDL Ratio 3.42 % 11/04/19 08:08 TSH 1.250 mlU/mL (0.270-4.200) 11/04/19 08:08 Urine Color [place] (Yellow) 11/04/19 Unknown Urine Turbidity Clear (Clear) 11/04/19 Unknown Urine pH 5.0 (5.0-7.0) 11/04/19 Unknown Ur Specific [place] 1.016 (1.003-1.030) 11/04/19 Unknown Urine Protein <15 mg/dl mg/dL (Negative) 11/04/19 Unknown Urine Glucose (UA) Neg mg/dL (Negative) 11/04/19 Unknown Urine Ketones Tr mg/dL (Negative) 11/04/19 Unknown Urine Blood Neg (Negative) 11/04/19 Unknown Urine Nitrite Neg (Negative) 11/04/19 Unknown Urine Bilirubin Neg (Negative) 11/04/19 Unknown Urine Urobilinogen 4.0 mg/dL (<2.0) 11/04/19 Unknown Ur Leukocyte Esterase Neg (Negative) 11/04/19 Unknown Urine WBC (Auto) 2.0 /HPF (0.0-6.0) 11/04/19 Unknown Urine RBC (Auto) < 1.0 /HPF (0.0-6.0) 11/04/19 Unknown Urine Bacteria (Auto) 1+ /HPF (Negative) 11/04/19 Unknown Urine Mucus Few /HPF 11/04/19 Unknown Last Vital Signs Temp 98.2 F 11/05/19 10:00 Pulse 76 11/05/19 10:00 Resp 18 11/05/19 10:00 BP 126/66 11/05/19 10:00 Pulse Ox 98 11/05/19 10:00
[2019-11-05 12:34] LABS: Creatine Kinase MB 1.5 ng/mL (0.0-4.0)
[2019-11-05] MEDS: LATANOPROST 0.005% OPHTH SOLN 2.5 ML OU SCH (21:05)
[2019-11-05] MEDS: MIRTAZAPINE 15 MG TAB PO SCH (21:06)
[2019-11-05] MEDS: traZODone 50 MG TAB PO PRN (21:06)
[2019-11-06] MEDS: FERROUS SULFATE 325 MG TAB PO SCH ×2 (09:46→21:17)
[2019-11-06] MEDS: METOPROLOL TARTRATE 50 MG TAB PO SCH ×2 (09:46→21:18)
[2019-11-06] MEDS: hydroCHLOROthiazide 12.5 MG CAP PO SCH (09:46)
[2019-11-06] MEDS: CITALOPRAM 20 MG TAB PO SCH (09:47)
[2019-11-06] MEDS: PANTOPRAZOLE 40 MG TAB PO SCH (09:47)
[2019-11-06] MEDS: ARIPiprazole 10 MG TAB PO SCH (09:47)
[2019-11-06] MEDS: SODIUM BICARBONATE 650 MG TAB PO SCH ×2 (09:47→21:17)
--- NOTE | 2019-11-06 10:04 | Progress Note ---
Subjective Date of service: 11/06/19 Subjective Comment: Subjective Comment: Reviewed the patient's medical chart and discussed progress with nursing staff. Per chart Patient slept off and on. Slept from 183 until 1999. Then awake from 1999 until 2044. Patient then slept one hour. Patient was then awake from 2144 until 399. Patient went back to sleep at 0400 and is currently sleeping. During my interview this morning, the patient this morning he was in the dayroom, he is aaox1. he reports feeling better and report his mood as ok. he stated that he slept on and off last night. He states, "I am hearing voices telling me to hurt myself". He denies HI. He report his appetite as poor. the patient is withdrawn Reason for continued admission into the hospital: psychosis/ aggression REVIEW OF SYSTEMS Constitutional: positive for weight loss ENT: Negative for stridor Respiratory: Negative for cough or hemoptysis All other systems reviewed and are negative Mental Status Exam Appearance: Wearing appropriate clothing. Good hygiene Behavior: Pleasant and cooperative. Mood: "ok" Affect: flat Thought Process: Goal directed Speech: normal, low Thought Content Harmfulness: yes Hallucinations:no Delusions: no Consciousness: alert. Cognition/Memory: poor Insight/Judgment: Limited. Assessment: acute psychosis Treatment Plan Due to the psychiatric conditions and treatment listed in the Assessment and Plan - the patient requires continued hospitalization. Will continue inpatient treatment to allow for medication adjustment and monitoring. Will continue q15 min safety checks. Will encourage the use of environmental modifications and non-pharmacologic approaches for the management of behavioral and psychological symptoms. Medication adjustment made today: none Will continue current psych medications Monitor for medication side effects. The patient will continue on medications for physical illnesses, and Hospitalist will closely monitor these Continue intensive physical and occupational therapies. Monitor patient's mood, sleep, appetite, and behavior closely. Encourage patient to participate in individual and group therapeutic sessions on the guzman. Will provide a safe and therapeutic environment for patient. ELOS 3 days Medications and Allergies Allergies Allergy/AdvReac Type Severity Reaction Status Date / Time No Known Allergies Allergy Verified 06/23/17 19:12 Home Medications Medication Instructions Recorded Confirmed Last Taken Type Docusate Sodium [Colace CAP] 100 mg PO BID PRN #30 capsule 06/24/17 11/04/19 Unknown Rx Ferrous Sulfate [Feosol 325 MG tab] 325 mg PO BID #60 tablet 06/24/17 11/04/19 Unknown Rx Amlodipine Besylate [Norvasc] 10 mg PO QAM 07/06/19 11/04/19 07/06/19 10:00 History Lactulose 30 ml PO BID 07/06/19 11/04/19 07/06/19 10:00 History 30 ml Latanoprost 0.005% 1 drop OU HS 07/06/19 11/04/19 07/05/19 22:00 History 1 gtt Metoprolol Tartrate 50 mg PO BID 07/06/19 11/04/19 07/06/19 10:00 History 50 mg Pantoprazole 40 mg PO DAILY 07/06/19 11/04/19 07/06/19 10:00 History 40 mg Patiromer Calcium Sorbitex 8.4 gm PO DAILY 07/06/19 11/04/19 07/06/19 13:00 History Sodium Bicarbonate 650 mg PO BID 07/06/19 11/04/19 07/05/19 09:00 History 650 mg Citalopram [Celexa] 20 mg PO QDAY #30 tablet 07/18/19 11/04/19 Unknown Rx ARIPiprazole [Abilify TAB] 10 mg PO QDAY #30 tablet 11/05/19 Unknown Rx Mirtazapine [Remeron 15mg TAB] 15 mg PO QHS #30 tablet 11/05/19 Unknown Rx buPROPion SR [Wellbutrin SR] 100 mg PO BID #60 11/05/19 Unknown Rx hydroCHLOROthiazide [HCTZ] 12.5 mg PO QDAY #30 capsule 11/05/19 Unknown Rx Active Meds: Active Medications Aripiprazole (Aripiprazole) 10 mg PO QDAY [facility] Last Admin: 11/06/19 09:47 Dose: 10 mg Documented by: Citalopram Hydrobromide (Celexa) 20 mg PO QDAY [facility] Last Admin: 11/06/19 09:47 Dose: 20 mg Documented by: Docusate Sodium (Colace) 100 mg PO BID PRN PRN Reason: Constipation Ferrous Sulfate (Feosol) 325 mg PO BID [facility] Last Admin: 11/06/19 09:46 Dose: 325 mg Documented by: Hydrochlorothiazide (Hctz) 12.5 mg PO QDAY [facility] Last Admin: 11/06/19 09:46 Dose: 12.5 mg Documented by: Latanoprost (Latanoprost 0.005%) 1 drops OU HS [facility] Last Admin: 11/05/19 21:05 Dose: 1 drops Documented by: Metoprolol Tartrate (Metoprolol) 50 mg PO BID [facility] Last Admin: 11/06/19 09:46 Dose: 50 mg Documented by: Mirtazapine (Remeron) 15 mg PO QHS [facility] Last Admin: 11/05/19 21:06 Dose: 15 mg Documented by: Miscellaneous Medication (Patiromer Calcium Sorbitex) 8.4 gm PO DAILY [facility] Pantoprazole Sodium (Protonix) 40 mg PO DAILY [facility] Last Admin: 11/06/19 09:47 Dose: 40 mg Documented by: Sodium Bicarbonate (Sodium Bicarbonate) 650 mg PO BID [facility] Last Admin: 11/06/19 09:47 Dose: 650 mg Documented by: Trazodone HCl (Desyrel) 50 mg PO QHS PRN PRN Reason: Insomnia Last Admin: 11/05/19 21:06 Dose: 50 mg Documented by: Results - Results Labs/Vitals: Laboratory Last Values WBC 6.5 K/mm3 (4.5-11.0) 11/04/19 23:30 RBC 4.10 M/mm3 (3.65-5.03) 11/04/19 23:30 Hgb 10.4 gm/dl (11.8-15.2) L 11/04/19 23:30 Hct 32.8 % (35.5-45.6) L 11/04/19 23:30 MCV 80 fl (84-94) L 11/04/19 23:30 MCH 26 pg (28-32) L 11/04/19 23:30 MCHC 32 % (32-34) 11/04/19 23:30 RDW 18.2 % (13.2-15.2) H 11/04/19 23:30 Plt Count 224 K/mm3 (140-440) 11/04/19 23:30 Lymph % (Auto) 11.0 % (13.4-35.0) L 11/04/19 23:30 [place] % (Auto) 9.0 % (0.0-7.3) H 11/04/19 23:30 Eos % (Auto) 0.2 % (0.0-4.3) 11/04/19 23:30 Baso % (Auto) 0.4 % (0.0-1.8) 11/04/19 23:30 Lymph # 0.7 K/mm3 (1.2-5.4) L 11/04/19 23:30 [place] # 0.6 K/mm3 (0.0-0.8) 11/04/19 23:30 Eos # 0.0 K/mm3 (0.0-0.4) 11/04/19 23:30 Baso # 0.0 K/mm3 (0.0-0.1) 11/04/19 23:30 Seg Neutrophils % 79.4 % (40.0-70.0) H 11/04/19 23:30 Seg Neutrophils # 5.2 K/mm3 (1.8-7.7) 11/04/19 23:30 Sodium 139 mmol/L (137-145) 11/04/19 23:30 Potassium 4.2 mmol/L (3.6-5.0) 11/04/19 23:30 Chloride 96.4 mmol/L (98-107) L 11/04/19 23:30 Carbon Dioxide 26 mmol/L (22-30) 11/04/19 23:30 Anion Gap 21 mmol/L 11/04/19 23:30 BUN 22 mg/dL (9-20) H 11/04/19 23:30 Creatinine 1.4 mg/dL (0.8-1.5) D 11/04/19 23:30 Estimated GFR 50 ml/min 11/04/19 23:30 BUN/Creatinine Ratio 16 % 11/04/19 23:30 Glucose 166 mg/dL (75-100) H 11/04/19 23:30 POC Glucose 182 (70-105) H 11/04/19 22:11 Calcium 9.8 mg/dL (8.4-10.2) 11/04/19 23:30 Total Bilirubin 0.40 mg/dL (0.1-1.2) 11/04/19 23:30 AST 36 units/L (5-40) 11/04/19 23:30 ALT 17 units/L (7-56) 11/04/19 23:30 Alkaline Phosphatase 81 units/L (35-129) 11/04/19 23:30 Total Creatine Kinase 203 units/L (55-170) H 11/05/19 11:23 CK-MB (CK-2) 1.5 ng/mL (0.0-4.0) 11/05/19 11:23 CK-MB (CK-2) Rel Index 0.7 (0-4) 11/05/19 11:23 Troponin T < 0.010 ng/mL (0.00-0.029) 11/05/19 11:23 Total Protein 7.4 g/dL (6.3-8.2) 11/04/19 23:30 Albumin 3.7 g/dL (3.9-5) L 11/04/19 23:30 Albumin/Globulin Ratio 1.0 % 11/04/19 23:30 Triglycerides 83 mg/dL (2-149) 11/04/19 08:08 Cholesterol 144 mg/dL (50-199) 11/04/19 08:08 LDL Cholesterol Direct 87 mg/dL (50-130) 11/04/19 08:08 HDL Cholesterol 42 mg/dL (40-59) 11/04/19 08:08 Cholesterol/HDL Ratio 3.42 % 11/04/19 08:08 TSH 1.250 mlU/mL (0.270-4.200) 11/04/19 08:08 Urine Color [place] (Yellow) 11/04/19 Unknown Urine Turbidity Clear (Clear) 11/04/19 Unknown Urine pH 5.0 (5.0-7.0) 11/04/19 Unknown Ur Specific [place] 1.016 (1.003-1.030) 11/04/19 Unknown Urine Protein <15 mg/dl mg/dL (Negative) 11/04/19 Unknown Urine Glucose (UA) Neg mg/dL (Negative) 11/04/19 Unknown Urine Ketones Tr mg/dL (Negative) 11/04/19 Unknown Urine Blood Neg (Negative) 11/04/19 Unknown Urine Nitrite Neg (Negative) 11/04/19 Unknown Urine Bilirubin Neg (Negative) 11/04/19 Unknown Urine Urobilinogen 4.0 mg/dL (<2.0) 11/04/19 Unknown Ur Leukocyte Esterase Neg (Negative) 11/04/19 Unknown Urine WBC (Auto) 2.0 /HPF (0.0-6.0) 11/04/19 Unknown Urine RBC (Auto) < 1.0 /HPF (0.0-6.0) 11/04/19 Unknown Urine Bacteria (Auto) 1+ /HPF (Negative) 11/04/19 Unknown Urine Mucus Few /HPF 11/04/19 Unknown Last Vital Signs Temp 98.2 F 11/06/19 09:45 Pulse 62 11/06/19 09:46 Resp 16 11/06/19 09:45 BP 139/71 11/06/19 09:46 Pulse Ox 100 11/06/19 09:45
[2019-11-06] MEDS: MIRTAZAPINE 15 MG TAB PO SCH (21:18)
[2019-11-06] MEDS: LATANOPROST 0.005% OPHTH SOLN 2.5 ML OU SCH (21:55)
[2019-11-06] MEDS: traZODone 50 MG TAB PO PRN (23:34)
--- NOTE | 2019-11-07 07:44 | Progress Note ---
Subjective Date of service: 11/07/19 Subjective Comment: Subjective Comment: Reviewed the patient's medical chart and discussed progress with nursing staff. Per chart Patient Pt did not rest well last night. Attempted to get out of bed several times. Pt was given prn trazodone 50 mg,with very little effects. Pt place in gheri chair and staff monitored him closely in activity. The patient was irritable and more calm after being in gheri chair. During my interview this morning, the patient this morning he was in the dayroom, he is aaox1. He notice restless in his chair. when asked if he slept well he stated, " no, I have a lot of things on my mind. When asked to explain he responded, " its too much". he denies SI but, states, "I see men run and screaming and hearing voices telling me to do nothing".the patient was noted mumbling to himself. His thoughts are disorganized. Reason for continued admission into the hospital: psychosis/ aggression REVIEW OF SYSTEMS Constitutional: positive for weight loss ENT: Negative for stridor Respiratory: Negative for cough or hemoptysis All other systems reviewed and are negative Mental Status Exam Appearance: Wearing appropriate clothing. Good hygiene Behavior: Pleasant and cooperative. Mood: "so, so" Affect: blunted Thought Process: disorganized Speech: normal, low Thought Content Harmfulness: no Hallucinations:yes Delusions: yes Consciousness: alert. Cognition/Memory: poor Insight/Judgment: Limited. Assessment: acute psychosis Treatment Plan Due to the psychiatric conditions and treatment listed in the Assessment and Plan - the patient requires continued hospitalization. Will continue inpatient treatment to allow for medication adjustment and monitoring. Will continue q15 min safety checks. Will encourage the use of environmental modifications and non-pharmacologic approaches for the management of behavioral and psychological symptoms. Medication adjustment made today: increased trazodone , vistaril 25mg prn agitaion Will continue current psych medications Monitor for medication side effects. The patient will continue on medications for physical illnesses, and Hospitalist will closely monitor these Continue intensive physical and occupational therapies. Monitor patient's mood, sleep, appetite, and behavior closely. Encourage patient to participate in individual and group therapeutic sessions on the guzman. Will provide a safe and therapeutic environment for patient. ELOS 3 days Medications and Allergies Allergies Allergy/AdvReac Type Severity Reaction Status Date / Time No Known Allergies Allergy Verified 06/23/17 19:12 Home Medications Medication Instructions Recorded Confirmed Last Taken Type Docusate Sodium [Colace CAP] 100 mg PO BID PRN #30 capsule 06/24/17 11/04/19 Unknown Rx Ferrous Sulfate [Feosol 325 MG tab] 325 mg PO BID #60 tablet 06/24/17 11/04/19 Unknown Rx Amlodipine Besylate [Norvasc] 10 mg PO QAM 07/06/19 11/04/19 07/06/19 10:00 History Lactulose 30 ml PO BID 07/06/19 11/04/19 07/06/19 10:00 History 30 ml Latanoprost 0.005% 1 drop OU HS 07/06/19 11/04/19 07/05/19 22:00 History 1 gtt Metoprolol Tartrate 50 mg PO BID 07/06/19 11/04/19 07/06/19 10:00 History 50 mg Pantoprazole 40 mg PO DAILY 07/06/19 11/04/19 07/06/19 10:00 History 40 mg Patiromer Calcium Sorbitex 8.4 gm PO DAILY 07/06/19 11/04/19 07/06/19 13:00 History Sodium Bicarbonate 650 mg PO BID 07/06/19 11/04/19 07/05/19 09:00 History 650 mg Citalopram [Celexa] 20 mg PO QDAY #30 tablet 07/18/19 11/04/19 Unknown Rx ARIPiprazole [Abilify TAB] 10 mg PO QDAY #30 tablet 11/05/19 Unknown Rx Mirtazapine [Remeron 15mg TAB] 15 mg PO QHS #30 tablet 11/05/19 Unknown Rx buPROPion SR [Wellbutrin SR] 100 mg PO BID #60 11/05/19 Unknown Rx hydroCHLOROthiazide [HCTZ] 12.5 mg PO QDAY #30 capsule 11/05/19 Unknown Rx Active Meds: Active Medications Aripiprazole (Aripiprazole) 10 mg PO QDAY [facility] Last Admin: 11/06/19 09:47 Dose: 10 mg Documented by: Citalopram Hydrobromide (Celexa) 20 mg PO QDAY [facility] Last Admin: 11/06/19 09:47 Dose: 20 mg Documented by: Docusate Sodium (Colace) 100 mg PO BID PRN PRN Reason: Constipation Ferrous Sulfate (Feosol) 325 mg PO BID [facility] Last Admin: 11/06/19 21:17 Dose: 325 mg Documented by: Hydrochlorothiazide (Hctz) 12.5 mg PO QDAY [facility] Last Admin: 11/06/19 09:46 Dose: 12.5 mg Documented by: Latanoprost (Latanoprost 0.005%) 1 drops OU HS [facility] Last Admin: 11/06/19 21:55 Dose: 1 drops Documented by: Metoprolol Tartrate (Metoprolol) 50 mg PO BID [facility] Last Admin: 11/06/19 21:18 Dose: Not Given Documented by: Mirtazapine (Remeron) 15 mg PO QHS [facility] Last Admin: 11/06/19 21:18 Dose: 15 mg Documented by: Miscellaneous Medication (Patiromer Calcium Sorbitex) 8.4 gm PO DAILY [facility] Pantoprazole Sodium (Protonix) 40 mg PO DAILY [facility] Last Admin: 11/06/19 09:47 Dose: 40 mg Documented by: Sodium Bicarbonate (Sodium Bicarbonate) 650 mg PO BID [facility] Last Admin: 11/06/19 21:17 Dose: 650 mg Documented by: Trazodone HCl (Desyrel) 50 mg PO QHS PRN PRN Reason: Insomnia Last Admin: 11/06/19 23:34 Dose: 50 mg Documented by: Results - Results Labs/Vitals: Laboratory Last Values WBC 6.5 K/mm3 (4.5-11.0) 11/04/19 23:30 RBC 4.10 M/mm3 (3.65-5.03) 11/04/19 23:30 Hgb 10.4 gm/dl (11.8-15.2) L 11/04/19 23:30 Hct 32.8 % (35.5-45.6) L 11/04/19 23:30 MCV 80 fl (84-94) L 11/04/19 23:30 MCH 26 pg (28-32) L 11/04/19 23:30 MCHC 32 % (32-34) 11/04/19 23:30 RDW 18.2 % (13.2-15.2) H 11/04/19 23:30 Plt Count 224 K/mm3 (140-440) 11/04/19 23:30 Lymph % (Auto) 11.0 % (13.4-35.0) L 11/04/19 23:30 [place] % (Auto) 9.0 % (0.0-7.3) H 11/04/19 23:30 Eos % (Auto) 0.2 % (0.0-4.3) 11/04/19 23:30 Baso % (Auto) 0.4 % (0.0-1.8) 11/04/19 23:30 Lymph # 0.7 K/mm3 (1.2-5.4) L 11/04/19 23:30 [place] # 0.6 K/mm3 (0.0-0.8) 11/04/19 23:30 Eos # 0.0 K/mm3 (0.0-0.4) 11/04/19 23:30 Baso # 0.0 K/mm3 (0.0-0.1) 11/04/19 23:30 Seg Neutrophils % 79.4 % (40.0-70.0) H 11/04/19 23:30 Seg Neutrophils # 5.2 K/mm3 (1.8-7.7) 11/04/19 23:30 Sodium 139 mmol/L (137-145) 11/04/19 23:30 Potassium 4.2 mmol/L (3.6-5.0) 11/04/19 23:30 Chloride 96.4 mmol/L (98-107) L 11/04/19 23:30 Carbon Dioxide 26 mmol/L (22-30) 11/04/19 23:30 Anion Gap 21 mmol/L 11/04/19 23:30 BUN 22 mg/dL (9-20) H 11/04/19 23:30 Creatinine 1.4 mg/dL (0.8-1.5) D 11/04/19 23:30 Estimated GFR 50 ml/min 11/04/19 23:30 BUN/Creatinine Ratio 16 % 11/04/19 23:30 Glucose 166 mg/dL (75-100) H 11/04/19 23:30 POC Glucose 182 (70-105) H 11/04/19 22:11 Calcium 9.8 mg/dL (8.4-10.2) 11/04/19 23:30 Total Bilirubin 0.40 mg/dL (0.1-1.2) 11/04/19 23:30 AST 36 units/L (5-40) 11/04/19 23:30 ALT 17 units/L (7-56) 11/04/19 23:30 Alkaline Phosphatase 81 units/L (35-129) 11/04/19 23:30 Total Creatine Kinase 203 units/L (55-170) H 11/05/19 11:23 CK-MB (CK-2) 1.5 ng/mL (0.0-4.0) 11/05/19 11:23 CK-MB (CK-2) Rel Index 0.7 (0-4) 11/05/19 11:23 Troponin T < 0.010 ng/mL (0.00-0.029) 11/05/19 11:23 Total Protein 7.4 g/dL (6.3-8.2) 11/04/19 23:30 Albumin 3.7 g/dL (3.9-5) L 11/04/19 23:30 Albumin/Globulin Ratio 1.0 % 11/04/19 23:30 Triglycerides 83 mg/dL (2-149) 11/04/19 08:08 Cholesterol 144 mg/dL (50-199) 11/04/19 08:08 LDL Cholesterol Direct 87 mg/dL (50-130) 11/04/19 08:08 HDL Cholesterol 42 mg/dL (40-59) 11/04/19 08:08 Cholesterol/HDL Ratio 3.42 % 11/04/19 08:08 TSH 1.250 mlU/mL (0.270-4.200) 11/04/19 08:08 Urine Color [place] (Yellow) 11/04/19 Unknown Urine Turbidity Clear (Clear) 11/04/19 Unknown Urine pH 5.0 (5.0-7.0) 11/04/19 Unknown Ur Specific [place] 1.016 (1.003-1.030) 11/04/19 Unknown Urine Protein <15 mg/dl mg/dL (Negative) 11/04/19 Unknown Urine Glucose (UA) Neg mg/dL (Negative) 11/04/19 Unknown Urine Ketones Tr mg/dL (Negative) 11/04/19 Unknown Urine Blood Neg (Negative) 11/04/19 Unknown Urine Nitrite Neg (Negative) 11/04/19 Unknown Urine Bilirubin Neg (Negative) 11/04/19 Unknown Urine Urobilinogen 4.0 mg/dL (<2.0) 11/04/19 Unknown Ur Leukocyte Esterase Neg (Negative) 11/04/19 Unknown Urine WBC (Auto) 2.0 /HPF (0.0-6.0) 11/04/19 Unknown Urine RBC (Auto) < 1.0 /HPF (0.0-6.0) 11/04/19 Unknown Urine Bacteria (Auto) 1+ /HPF (Negative) 11/04/19 Unknown Urine Mucus Few /HPF 11/04/19 Unknown Last Vital Signs Temp 97.3 F L 11/06/19 19:40 Pulse 68 11/06/19 21:18 Resp 20 11/06/19 19:40 BP 80/47 11/06/19 21:18 Pulse Ox 97 11/06/19 19:40
[2019-11-07] MEDS ORDERED: hydrOXYzine PAMOATE 25 MG CAP PO PRN (07:48)
[2019-11-07] MEDS: FERROUS SULFATE 325 MG TAB PO SCH ×2 (10:04→21:06)
[2019-11-07] MEDS: ARIPiprazole 10 MG TAB PO SCH (10:04)
[2019-11-07] MEDS: PANTOPRAZOLE 40 MG TAB PO SCH (10:04)
[2019-11-07] MEDS: SODIUM BICARBONATE 650 MG TAB PO SCH ×2 (10:04→21:06)
[2019-11-07] MEDS: CITALOPRAM 20 MG TAB PO SCH (10:04)
[2019-11-07] MEDS: hydroCHLOROthiazide 12.5 MG CAP PO SCH (10:07)
[2019-11-07] MEDS: METOPROLOL TARTRATE 50 MG TAB PO SCH ×2 (10:08→21:07)
--- NOTE | 2019-11-07 15:53 | Event Note ---
Date: 11/07/19 Dx Dementia
[2019-11-07] MEDS: MIRTAZAPINE 15 MG TAB PO SCH (21:06)
[2019-11-07] MEDS: traZODone 100 MG TAB PO SCH (21:06)
[2019-11-07] MEDS: LATANOPROST 0.005% OPHTH SOLN 2.5 ML OU SCH (21:06)
--- NOTE | 2019-11-08 07:50 | Progress Note ---
Subjective Date of service: 11/08/19 Subjective Comment: Subjective Comment: Reviewed the patient's medical chart and discussed progress with nursing staff. Per chart Patient, pt slept for approximately 6hrs plus during the night, no behavioral issues, denies pain, no distress noted, will continue to monitor for safety. During my interview this morning, the patient was in BED aaox1, the patient stated he slept well and trying to eat. he denies SI, but reports hearing voices telling him to do nothing. Patient does respond to internal stimuli. Reason for continued admission into the hospital: psychosis/ improve level of functioning REVIEW OF SYSTEMS Constitutional: positive for weight loss ENT: Negative for stridor Respiratory: Negative for cough or hemoptysis All other systems reviewed and are negative Mental Status Exam Appearance: Wearing appropriate clothing. Good hygiene Behavior: Pleasant and cooperative. Mood: "OK" Affect: blunted Thought Process: disorganized Speech: normal, low Thought Content Harmfulness: no Hallucinations:yes Delusions: yes Consciousness: alert. Cognition/Memory: poor Insight/Judgment: Limited. Assessment: acute psychosis/ DEMENTIA Treatment Plan Due to the psychiatric conditions and treatment listed in the Assessment and Plan - the patient requires continued hospitalization. Will continue inpatient treatment to allow for medication adjustment and monitoring. Will continue q15 min safety checks. Will encourage the use of environmental modifications and non-pharmacologic approaches for the management of behavioral and psychological symptoms. Medication adjustment made today: increased trazodone , vistaril 25mg prn agitaion Will continue current psych medications Monitor for medication side effects. The patient will continue on medications for physical illnesses, and Hospitalist will closely monitor these Continue intensive physical and occupational therapies. Monitor patient's mood, sleep, appetite, and behavior closely. Encourage patient to participate in individual and group therapeutic sessions on the guzman. Will provide a safe and therapeutic environment for patient. ELOS 1 days Medications and Allergies Allergies Allergy/AdvReac Type Severity Reaction Status Date / Time No Known Allergies Allergy Verified 06/23/17 19:12 Home Medications Medication Instructions Recorded Confirmed Last Taken Type Docusate Sodium [Colace CAP] 100 mg PO BID PRN #30 capsule 06/24/17 11/04/19 Unknown Rx Ferrous Sulfate [Feosol 325 MG tab] 325 mg PO BID #60 tablet 06/24/17 11/04/19 Unknown Rx Amlodipine Besylate [Norvasc] 10 mg PO QAM 07/06/19 11/04/19 07/06/19 10:00 History Lactulose 30 ml PO BID 07/06/19 11/04/19 07/06/19 10:00 History 30 ml Latanoprost 0.005% 1 drop OU HS 07/06/19 11/04/19 07/05/19 22:00 History 1 gtt Metoprolol Tartrate 50 mg PO BID 07/06/19 11/04/19 07/06/19 10:00 History 50 mg Pantoprazole 40 mg PO DAILY 07/06/19 11/04/19 07/06/19 10:00 History 40 mg Patiromer Calcium Sorbitex 8.4 gm PO DAILY 07/06/19 11/04/19 07/06/19 13:00 History Sodium Bicarbonate 650 mg PO BID 07/06/19 11/04/19 07/05/19 09:00 History 650 mg Citalopram [Celexa] 20 mg PO QDAY #30 tablet 07/18/19 11/04/19 Unknown Rx ARIPiprazole [Abilify TAB] 10 mg PO QDAY #30 tablet 11/05/19 Unknown Rx Mirtazapine [Remeron 15mg TAB] 15 mg PO QHS #30 tablet 11/05/19 Unknown Rx buPROPion SR [Wellbutrin SR] 100 mg PO BID #60 11/05/19 Unknown Rx hydroCHLOROthiazide [HCTZ] 12.5 mg PO QDAY #30 capsule 11/05/19 Unknown Rx Active Meds: Active Medications Aripiprazole (Aripiprazole) 10 mg PO QDAY [facility] Last Admin: 11/07/19 10:04 Dose: 10 mg Documented by: Citalopram Hydrobromide (Celexa) 20 mg PO QDAY [facility] Last Admin: 11/07/19 10:04 Dose: 20 mg Documented by: Docusate Sodium (Colace) 100 mg PO BID PRN PRN Reason: Constipation Ferrous Sulfate (Feosol) 325 mg PO BID [facility] Last Admin: 11/07/19 21:06 Dose: 325 mg Documented by: Hydrochlorothiazide (Hctz) 12.5 mg PO QDAY [facility] Last Admin: 11/07/19 10:07 Dose: Not Given Documented by: Hydroxyzine Pamoate (Vistaril) 25 mg PO Q6H PRN PRN Reason: Anxiety Latanoprost (Latanoprost 0.005%) 1 drops OU HS [facility] Last Admin: 11/07/19 21:06 Dose: 1 drops Documented by: Metoprolol Tartrate (Metoprolol) 50 mg PO BID [facility] Last Admin: 11/07/19 21:07 Dose: Not Given Documented by: Mirtazapine (Remeron) 15 mg PO QHS [facility] Last Admin: 11/07/19 21:06 Dose: 15 mg Documented by: Miscellaneous Medication (Patiromer Calcium Sorbitex) 8.4 gm PO DAILY [facility] Pantoprazole Sodium (Protonix) 40 mg PO DAILY [facility] Last Admin: 11/07/19 10:04 Dose: 40 mg Documented by: Sodium Bicarbonate (Sodium Bicarbonate) 650 mg PO BID [facility] Last Admin: 11/07/19 21:06 Dose: 650 mg Documented by: Trazodone HCl (Desyrel) 100 mg PO QHS [facility] Last Admin: 11/07/19 21:06 Dose: 100 mg Documented by: Results - Results Labs/Vitals: Laboratory Last Values WBC 6.5 K/mm3 (4.5-11.0) 11/04/19 23:30 RBC 4.10 M/mm3 (3.65-5.03) 11/04/19 23:30 Hgb 10.4 gm/dl (11.8-15.2) L 11/04/19 23:30 Hct 32.8 % (35.5-45.6) L 11/04/19 23:30 MCV 80 fl (84-94) L 11/04/19 23:30 MCH 26 pg (28-32) L 11/04/19 23:30 MCHC 32 % (32-34) 11/04/19 23:30 RDW 18.2 % (13.2-15.2) H 11/04/19 23:30 Plt Count 224 K/mm3 (140-440) 11/04/19 23:30 Lymph % (Auto) 11.0 % (13.4-35.0) L 11/04/19 23:30 [place] % (Auto) 9.0 % (0.0-7.3) H 11/04/19 23:30 Eos % (Auto) 0.2 % (0.0-4.3) 11/04/19 23:30 Baso % (Auto) 0.4 % (0.0-1.8) 11/04/19 23:30 Lymph # 0.7 K/mm3 (1.2-5.4) L 11/04/19 23:30 [place] # 0.6 K/mm3 (0.0-0.8) 11/04/19 23:30 Eos # 0.0 K/mm3 (0.0-0.4) 11/04/19 23:30 Baso # 0.0 K/mm3 (0.0-0.1) 11/04/19 23:30 Seg Neutrophils % 79.4 % (40.0-70.0) H 11/04/19 23:30 Seg Neutrophils # 5.2 K/mm3 (1.8-7.7) 11/04/19 23:30 Sodium 139 mmol/L (137-145) 11/04/19 23:30 Potassium 4.2 mmol/L (3.6-5.0) 11/04/19 23:30 Chloride 96.4 mmol/L (98-107) L 11/04/19 23:30 Carbon Dioxide 26 mmol/L (22-30) 11/04/19 23:30 Anion Gap 21 mmol/L 11/04/19 23:30 BUN 22 mg/dL (9-20) H 11/04/19 23:30 Creatinine 1.4 mg/dL (0.8-1.5) D 11/04/19 23:30 Estimated GFR 50 ml/min 11/04/19 23:30 BUN/Creatinine Ratio 16 % 11/04/19 23:30 Glucose 166 mg/dL (75-100) H 11/04/19 23:30 POC Glucose 182 (70-105) H 11/04/19 22:11 Calcium 9.8 mg/dL (8.4-10.2) 11/04/19 23:30 Total Bilirubin 0.40 mg/dL (0.1-1.2) 11/04/19 23:30 AST 36 units/L (5-40) 11/04/19 23:30 ALT 17 units/L (7-56) 11/04/19 23:30 Alkaline Phosphatase 81 units/L (35-129) 11/04/19 23:30 Total Creatine Kinase 203 units/L (55-170) H 11/05/19 11:23 CK-MB (CK-2) 1.5 ng/mL (0.0-4.0) 11/05/19 11:23 CK-MB (CK-2) Rel Index 0.7 (0-4) 11/05/19 11:23 Troponin T < 0.010 ng/mL (0.00-0.029) 11/05/19 11:23 Total Protein 7.4 g/dL (6.3-8.2) 11/04/19 23:30 Albumin 3.7 g/dL (3.9-5) L 11/04/19 23:30 Albumin/Globulin Ratio 1.0 % 11/04/19 23:30 Triglycerides 83 mg/dL (2-149) 11/04/19 08:08 Cholesterol 144 mg/dL (50-199) 11/04/19 08:08 LDL Cholesterol Direct 87 mg/dL (50-130) 11/04/19 08:08 HDL Cholesterol 42 mg/dL (40-59) 11/04/19 08:08 Cholesterol/HDL Ratio 3.42 % 11/04/19 08:08 TSH 1.250 mlU/mL (0.270-4.200) 11/04/19 08:08 Urine Color [place] (Yellow) 11/04/19 Unknown Urine Turbidity Clear (Clear) 11/04/19 Unknown Urine pH 5.0 (5.0-7.0) 11/04/19 Unknown Ur Specific [place] 1.016 (1.003-1.030) 11/04/19 Unknown Urine Protein <15 mg/dl mg/dL (Negative) 11/04/19 Unknown Urine Glucose (UA) Neg mg/dL (Negative) 11/04/19 Unknown Urine Ketones Tr mg/dL (Negative) 11/04/19 Unknown Urine Blood Neg (Negative) 11/04/19 Unknown Urine Nitrite Neg (Negative) 11/04/19 Unknown Urine Bilirubin Neg (Negative) 11/04/19 Unknown Urine Urobilinogen 4.0 mg/dL (<2.0) 11/04/19 Unknown Ur Leukocyte Esterase Neg (Negative) 11/04/19 Unknown Urine WBC (Auto) 2.0 /HPF (0.0-6.0) 11/04/19 Unknown Urine RBC (Auto) < 1.0 /HPF (0.0-6.0) 11/04/19 Unknown Urine Bacteria (Auto) 1+ /HPF (Negative) 11/04/19 Unknown Urine Mucus Few /HPF 11/04/19 Unknown Last Vital Signs Temp 98.3 F 11/07/19 22:00 Pulse 61 11/07/19 22:00 Resp 20 11/07/19 22:00 BP 98/53 11/07/19 22:00 Pulse Ox 100 11/07/19 22:00
[2019-11-08] MEDS: ARIPiprazole 10 MG TAB PO SCH (09:05)
[2019-11-08] MEDS: PANTOPRAZOLE 40 MG TAB PO SCH (09:05)
[2019-11-08] MEDS: FERROUS SULFATE 325 MG TAB PO SCH ×2 (09:05→22:03)
[2019-11-08] MEDS: CITALOPRAM 20 MG TAB PO SCH (09:05)
[2019-11-08] MEDS: SODIUM BICARBONATE 650 MG TAB PO SCH ×2 (09:05→22:03)
[2019-11-08] MEDS: METOPROLOL TARTRATE 50 MG TAB PO SCH ×2 (09:06→22:04)
[2019-11-08] MEDS: hydroCHLOROthiazide 12.5 MG CAP PO SCH (09:06)
[2019-11-08] MEDS: LATANOPROST 0.005% OPHTH SOLN 2.5 ML OU SCH (22:02)
[2019-11-08] MEDS: traZODone 100 MG TAB PO SCH (22:03)
[2019-11-08] MEDS: MIRTAZAPINE 15 MG TAB PO SCH (22:03)
--- NOTE | 2019-11-09 09:14 | Discharge Summary ---
Providers - Providers Date of Admission: 11/04/19 00:48 Date of discharge: 11/09/19 Attending physician: ZAHRAA BURRIS MD 11/04/19 00:11 Consult to Physician [CONS] Routine Comment: Consulting Provider: RADHA VILLEDA Physician Instructions: Reason For Exam: H&P for new admission Primary care physician: DOCTOR OF NURSE ANESTHESIA Hospitalization Condition: Stable Hospital course: The patient was provided inpatient psychiatric treatment with a safe and supportive environment, group/individual therapy, psychiatric medication, including medication adjustment, monitoring for adverse effects, medical evaluation, medical treatment, social service assessment, social support meeting, placement assessment and psycho-education. The patient's mood, cognition, behavior, motivation, compliance to treatment and appreciation on family/social support are improved and stabilized. At the time of discharge the patient had no suicidal, homicidal ideations or endangering behavior, and no debilitating adverse effects. The DPOA/Guardian and family agree on the treatment plan, understand the risk, benefit, alternative treatment, potential consequence of no treatment and gave informed consent. [facility] Time spent for discharge: 36 Allergies/Adverse Reactions: Allergies No Known Allergies Allergy (Verified 06/23/17 19:12) Vital Signs: Last Vital Signs Temp 98.5 F 11/08/19 19:55 Pulse 79 11/08/19 22:04 Resp 18 11/08/19 19:55 BP 90/49 11/08/19 22:04 Pulse Ox 100 11/08/19 19:55 Last Lab: Laboratory Last Values WBC 6.5 K/mm3 (4.5-11.0) 11/04/19 23:30 RBC 4.10 M/mm3 (3.65-5.03) 11/04/19 23:30 Hgb 10.4 gm/dl (11.8-15.2) L 11/04/19 23:30 Hct 32.8 % (35.5-45.6) L 11/04/19 23:30 MCV 80 fl (84-94) L 11/04/19 23:30 MCH 26 pg (28-32) L 11/04/19 23:30 MCHC 32 % (32-34) 11/04/19 23:30 RDW 18.2 % (13.2-15.2) H 11/04/19 23:30 Plt Count 224 K/mm3 (140-440) 11/04/19 23:30 Lymph % (Auto) 11.0 % (13.4-35.0) L 11/04/19 23:30 [place] % (Auto) 9.0 % (0.0-7.3) H 11/04/19 23:30 Eos % (Auto) 0.2 % (0.0-4.3) 11/04/19 23:30 Baso % (Auto) 0.4 % (0.0-1.8) 11/04/19 23:30 Lymph # 0.7 K/mm3 (1.2-5.4) L 11/04/19 23:30 [place] # 0.6 K/mm3 (0.0-0.8) 11/04/19 23:30 Eos # 0.0 K/mm3 (0.0-0.4) 11/04/19 23:30 Baso # 0.0 K/mm3 (0.0-0.1) 11/04/19 23:30 Seg Neutrophils % 79.4 % (40.0-70.0) H 11/04/19 23:30 Seg Neutrophils # 5.2 K/mm3 (1.8-7.7) 11/04/19 23:30 Sodium 139 mmol/L (137-145) 11/04/19 23:30 Potassium 4.2 mmol/L (3.6-5.0) 11/04/19 23:30 Chloride 96.4 mmol/L (98-107) L 11/04/19 23:30 Carbon Dioxide 26 mmol/L (22-30) 11/04/19 23:30 Anion Gap 21 mmol/L 11/04/19 23:30 BUN 22 mg/dL (9-20) H 11/04/19 23:30 Creatinine 1.4 mg/dL (0.8-1.5) D 11/04/19 23:30 Estimated GFR 50 ml/min 11/04/19 23:30 BUN/Creatinine Ratio 16 % 11/04/19 23:30 Glucose 166 mg/dL (75-100) H 11/04/19 23:30 POC Glucose 182 (70-105) H 11/04/19 22:11 Calcium 9.8 mg/dL (8.4-10.2) 11/04/19 23:30 Total Bilirubin 0.40 mg/dL (0.1-1.2) 11/04/19 23:30 AST 36 units/L (5-40) 11/04/19 23:30 ALT 17 units/L (7-56) 11/04/19 23:30 Alkaline Phosphatase 81 units/L (35-129) 11/04/19 23:30 Total Creatine Kinase 203 units/L (55-170) H 11/05/19 11:23 CK-MB (CK-2) 1.5 ng/mL (0.0-4.0) 11/05/19 11:23 CK-MB (CK-2) Rel Index 0.7 (0-4) 11/05/19 11:23 Troponin T < 0.010 ng/mL (0.00-0.029) 11/05/19 11:23 Total Protein 7.4 g/dL (6.3-8.2) 11/04/19 23:30 Albumin 3.7 g/dL (3.9-5) L 11/04/19 23:30 Albumin/Globulin Ratio 1.0 % 11/04/19 23:30 Triglycerides 83 mg/dL (2-149) 11/04/19 08:08 Cholesterol 144 mg/dL (50-199) 11/04/19 08:08 LDL Cholesterol Direct 87 mg/dL (50-130) 11/04/19 08:08 HDL Cholesterol 42 mg/dL (40-59) 11/04/19 08:08 Cholesterol/HDL Ratio 3.42 % 11/04/19 08:08 TSH 1.250 mlU/mL (0.270-4.200) 11/04/19 08:08 Urine Color [place] (Yellow) 11/04/19 Unknown Urine Turbidity Clear (Clear) 11/04/19 Unknown Urine pH 5.0 (5.0-7.0) 11/04/19 Unknown Ur Specific [place] 1.016 (1.003-1.030) 11/04/19 Unknown Urine Protein <15 mg/dl mg/dL (Negative) 11/04/19 Unknown Urine Glucose (UA) Neg mg/dL (Negative) 11/04/19 Unknown Urine Ketones Tr mg/dL (Negative) 11/04/19 Unknown Urine Blood Neg (Negative) 11/04/19 Unknown Urine Nitrite Neg (Negative) 11/04/19 Unknown Urine Bilirubin Neg (Negative) 11/04/19 Unknown Urine Urobilinogen 4.0 mg/dL (<2.0) 11/04/19 Unknown Ur Leukocyte Esterase Neg (Negative) 11/04/19 Unknown Urine WBC (Auto) 2.0 /HPF (0.0-6.0) 11/04/19 Unknown Urine RBC (Auto) < 1.0 /HPF (0.0-6.0) 11/04/19 Unknown Urine Bacteria (Auto) 1+ /HPF (Negative) 11/04/19 Unknown Urine Mucus Few /HPF 11/04/19 Unknown Core Measure Documentation - Palliative Care Palliative Care/ Comfort Measures: Not Applicable - Core Measures Any of the following diagnoses?: none Exam - Constitutional Vitals: Temp Pulse Resp BP Pulse Ox 98.5 F 79 18 90/49 100 11/08/19 19:55 11/08/19 22:04 11/08/19 19:55 11/08/19 22:04 11/08/19 19:55 General appearance: Present: no acute distress - EENT Eyes: Present: PERRL, EOM intact ENT: hearing intact, clear oral mucosa - Neck Neck: Present: supple, normal ROM - Respiratory Respiratory effort: normal Plan Activity: advance as tolerated Weight Bearing Status: Weight Bear as Tolerated Care Plan Goals: Maintain good and stable mental health. Plan of Treatment: The patient should be compliant with medications, not to use drugs and not to drink alcohol. The patient understands that if suicidal ideas, homicidal ideas, or any endangering thoughts arise, the patient should immediately seek for emergent assistance including but not limited to crisis hot line and emergency room. Follow up with outpatient Psychiatrist and PCP within 7 - 14 days of discharge Health Concerns: none Follow up with: PRIMARY CARE, [Primary Care Provider] - 7 Days Prescriptions: Mirtazapine [Remeron 15mg TAB] 15 mg PO QHS #30 tablet ARIPiprazole [Abilify TAB] 10 mg PO QDAY #30 tablet hydroCHLOROthiazide [HCTZ] 12.5 mg PO QDAY #30 capsule buPROPion SR [Wellbutrin SR] 100 mg PO BID #60
[2019-11-09] MEDS: PANTOPRAZOLE 40 MG TAB PO SCH (10:47)
[2019-11-09] MEDS: ARIPiprazole 10 MG TAB PO SCH (10:48)
[2019-11-09] MEDS: hydroCHLOROthiazide 12.5 MG CAP PO SCH (10:48)
[2019-11-09] MEDS: FERROUS SULFATE 325 MG TAB PO SCH (10:48)
[2019-11-09] MEDS: SODIUM BICARBONATE 650 MG TAB PO SCH (10:48)
[2019-11-09] MEDS: METOPROLOL TARTRATE 50 MG TAB PO SCH (10:49)
[2019-11-09] MEDS: CITALOPRAM 20 MG TAB PO SCH (10:51)
[2019-11-09 10:53] VITALS: BP 98/58
== END 2019-11-09 18:00 | disposition home or self-care (01) | DRG 885 ==
LOC: UNDOADMIN 21:29 → 3A 21:29 → 5A 11-04 00:48
PROVIDERS: ADMIT Psychiatry & Neurology Psychiatry; ATTEND Psychiatry & Neurology Psychiatry
DX: F23 Brief psychotic disorder (principal); F03.90 Unspecified dementia, unspecified severity, without behavioral disturbance, psychotic disturbance, mood disturbance, and anxiety; I10 Essential (primary) hypertension; G40.909 Epilepsy, unspecified, not intractable, without status epilepticus; S01.111A Laceration without foreign body of right eyelid and periocular area, initial encounter; X58.XXXA Exposure to other specified factors, initial encounter; Y93.89 Activity, other specified; Y92.89 Other specified places as the place of occurrence of the external cause; Y99.8 Other external cause status
CPT/HCPCS: 36415; 70450; 80053; 80061; 81001; 82550; 82553; 82962; 84443; 84484; 85025; 93005; 93010; G0378